=== PATIENT | female | born 1970 | race Caucasian/White ===

== ENCOUNTER 2018-07-30 09:12 | Emergency (ER) | payer OTHER ==
--- OUTSIDE RECORDS SUMMARY | 2018-07-30 09:16 | XMS REPORT | Continuity of Care Document ---
:1970 Author Organization Interface Problems Problem Status Onset Classification Date Comments Source Date Reported ANXIETY-DEPRESSIO Active 06/25/20 [facility] N 18 ABDOMINAL PAIN Active 06/17/20 [place] 18 [place] Chest pain 04/03/20 04/06/2018 [place] 18 [place] Acute lumbar 04/02/20 04/06/2018 [place] radiculopathy 18 [place] Lupus Resolved 10/01/19 Problem 04/06/2018 [facility] 13 Group, [place] AA - Aortic Resolved 10/01/19 Problem 04/06/2018 Medical aneurysm 11 Group, [place] Anxiety Resolved Problem 04/06/2018 Medical Group, [place] Fibromyalgia Resolved Problem 04/06/2018 Medical Group, [place] Fibromyalgia Active Problem 04/06/2018 Medical Group, [place] Migraines Active Problem 04/06/2018 [facility] Group, [place] Mixed anxiety and Active Problem 04/06/2018 Medical depressive Group, disorder [place] Simple obesity Active Problem 04/06/2018 [facility] Group, [place] UTI (<span Resolved Problem 04/06/2018 Medical ID="[id number]" Group,[facility] >Confirmed</span> [place] ) Chest pain Active Problem 04/06/2018 [facility] Group, [place] Acute lumbar Active Problem 04/06/2018 Medical radiculopathy Group, [place] MAJOR DEPRESSIVE Active [facility] DISORDER, SINGLE EPISOD GENERALIZED Active [facility] ANXIETY DISORDER Medications Medication Details Route Status Patient Ordering Order Source Instructions Provider Date Zofran 4 mg, Route: Inactive IVP, Drug 018 [place] form: INJ, [place] ONCE, Dosing Weight 76.563, kg, Priority: STAT, Start date: 04/03/18 0:38:00 CDT, Stop date: 04/03/18 0:38:00 CDT Morphine 2 mg, 1 mL, Inactive Route: IVP, 018 [place] Drug form: [place] INJ, ONCE, Dosing Weight 76.563, kg, Priority: STAT, Start date: 04/02/18 22:07:00 CDT, Stop date: 04/02/18 22:07:00 CDTNotes: (Same as:MORPhine Sulfate) Omnipaque 350 100 mL, Inactive injectable Route: IVP, 018 [place] solution Drug Form: [place] SOLN, Dosing Weight 76.563, kg, ONCALL, GFR > 45 mL/min, STAT, Start date: 04/02/18 22:00:00 CDT, Duration: 1 doses or timesNotes: (same as:Omnipaque 350). WASTE: F/P - Black; E - Municipal Trash Bin Saline Flush 0.9% 10 mL, Route: No Longer IVP, Drug Active 018 [place] Form: INJ, [place] Dosing Weight 76.563, kg, PRN, PRN Line Flush, Start date: 04/02/18 21:16:00 CDT, Duration: 30 day, Stop date: 05/02/18 21:15:00 CDTNotes: (Same as: BD Posiflush) Cyclobenzaprine 10 mg=1 tab, Active hydrochloride 10 PO, TID, PRN 018 [place] MG Oral Tablet for spasm, X Land [Flexeril] 7 day, # 21 tab, 0 Refill(s) tramadol 50 mg=1 tab, Active hydrochloride 50 PO, Q6H, PRN 018 [place] MG Oral Tablet Pain, X 3 [place] day, # 12 tab, 0 Refill(s) Zofran 4 mg, Route: Inactive IVP, Drug 018 [place] form: INJ, [place] ONCE, Dosing Weight 76.563, kg, Priority: STAT, Start date: 04/02/18 19:08:00 CDT, Stop date: 04/02/18 19:08:00 CDT Morphine 4 mg, Route: Inactive IVP, ONCE, 018 [place] Dosing Weight [place] 76.563, kg, Priority: STAT, Start date: 04/02/18 19:08:00 CDT, Stop date: 04/02/18 19:08:00 CDT Acetaminophen 325 1 tab, Route: Inactive MG / Hydrocodone PO, Drug 018 [place] Bitartrate 7.5 MG Form: TAB, [place] Oral Tablet Dosing Weight [[place] 7.5/325] 76.563, kg, ONCE, STAT, Start date: 04/02/18 17:58:00 CDT, Stop date: 04/02/18 17:58:00 CDT Clonazepam 0.5 mg, 1 Inactive tab, Route: 018 [place] PO, Drug [place] form: TAB, Daily, Dosing Weight 76.364, kg, Start date: 03/17/18 21:00:00 CDT, Duration: 30 day, Stop date: 04/15/18 21:00:00 CDTNotes: (Same As: KlonoPIN) Ondansetron 4 MG 4 mg=1 tab, Active Disintegrating PO, BID, PRN 018 [place] Tablet [Zofran] Nausea and [place] Vomiting, Dissolve tab under tongue, # 10 tab, 0 Refill(s), Pharmacy: [facility] [id number] ciprofloxacin 500 500 mg=1 tab, Active MH mg oral tablet PO, Q12H, for 018 [place] UTI and [place] enteritis, X 3 day, # 6 tab, 0 Refill(s), Pharmacy: [facility] [id number] tramadol 50 mg=1 tab, Active hydrochloride 50 PO, BID, X 15 018 [place] MG Oral Tablet day, # 30 [place] tab, 0 Refill(s) multivitamin 1 tab, Route: Inactive PO, Drug 018 [place] Form: TAB, [place] Dosing Weight 76.364, kg, Daily, Start date: 03/17/18 9:00:00 CDT, Duration: 30 day, Stop date: 04/15/18 9:00:00 CDTNotes: (Same as:Thera) WASTE: F/P - Black; E - Municipal Trash Bin Take with food. Wellbutrin SR 100 mg, 1 Inactive tab, Route: 018 [place] PO, Drug [place] form: ERTAB, Daily, Dosing Weight 76.364, kg, Start date: 03/17/18 9:00:00 CDT, Duration: 30 day, Stop date: 04/15/18 9:00:00 CDTNotes: Do not crush or chew. (Same As: Wellbutrin SR) topiramate 100 mg, 1 No Longer MH tab, Route: Active 018 [place] PO, Drug [place] form: TAB, BID, Dosing Weight 76.364, kg, Start date: 03/16/18 21:00:00 CDT, Duration: 30 day, Stop date: 04/15/18 9:00:00 CDTNotes: (Same As: Topamax) "Do Not Crush" duloxetine 30 mg, 1 cap, No Longer 2 MH Route: PO, Active 018 [place] Drug form: [place] DRC, BID, Dosing Weight 76.364, kg, Start date: 03/16/18 21:00:00 CDT, Duration: 30 day, Stop date: 04/15/18 9:00:00 CDTNotes: (Same as: Cymbalta) (Do Not Crush) Phenergan 12.5 mg, 0.5 Inactive MH mL, Route: 018 [place] IM, Drug [place] form: INJ, ONCE, Dosing Weight 76.364, kg, Priority: STAT, Start date: 03/16/18 19:26:00 CDT, Stop date: 03/16/18 19:26:00 CDTNotes: Do not give IV push. (Same as: Phenergan) Enoxaparin 40 mg, 0.4 No Longer MH mL, Route: Active 018 [place] SUB-Q, Drug [place] form: INJ, [id number], Dosing Weight 76.364, kg, Start date: 03/16/18 14:00:00 CDT, Stop date: 04/14/18 14:00:00 CDTNotes: (Same as: Lovenox) Ciprofloxacin 400 mg, 200 No Longer MH mL, Route: Active 018 [place] IVPB, Drug [place] form: INJ, [id number], Dosing Weight 76.364, kg, Start date: 03/16/18 14:00:00 CDT, Duration: 7 day, Stop date: 03/23/18 2:00:00 CDT, ABX Indication: Urinary Tract InfectionNote s: Do not refrigerate Ondansetron 4 mg, 2 mL, No Longer Route: IVP, Active 018 [place] Drug form: [place] INJ, Q8H, Dosing Weight 76.364, kg, PRN Nausea & Vomiting, Start date: 03/16/18 13:45:00 CDT, Duration: 30 day, Stop date: 04/15/18 13:44:00 CDTNotes: (Same as: Samira) MEDICATION WASTE Product Size: 4 mg Product Wasted: ___ mg Tessalon Perles 100 mg, 1 No Longer cap, Route: Active 018 [place] PO, Drug [place] form: CAP, Q8H, Dosing Weight 76.364, kg, PRN Cough, Start date: 03/16/18 13:45:00 CDT, Duration: 30 day, Stop date: 04/15/18 13:44:00 CDTNotes: (Same As: Tessalon Perles) "Do Not Crush" Diphenhydramine 25 mg, 1 cap, No Longer Route: PO, Active 018 [place] Drug form: [place] CAP, Q6H, Dosing Weight 76.364, kg, PRN Itching, Start date: 03/16/18 13:45:00 CDT, Duration: 30 day, Stop date: 04/15/18 13:44:00 CDTNotes: (Same as: Benadryl) Simethicone 80 mg, 1 tab, No Longer Route: PO, Active 018 [place] Drug form: [place] CHE[place]AB, Q6H, Dosing Weight 76.364, kg, PRN Gas, Start date: 03/16/18 13:45:00 CDT, Duration: 2 doses or times, Stop date: Limited # of timesNotes: (Same as: Mylicon) Aluminum 30 mL, Route: No Longer MH Hydroxide 40 PO, Drug Active 018 [place] MG/ML / Magnesium Form: SUSP, Land Hydroxide 40 Dosing Weight MG/ML / 76.364, kg, Simethicone 4 Q4H, PRN MG/ML Oral Indigestion, Suspension Start date: 03/16/18 13:45:00 CDT, Duration: 30 day, Stop date: 04/15/18 13:44:00 CDTNotes: (aluminum hydroxide-mag nesium hyd-simethico ne [id number]/ 5ml 30 ml ud [place]) Bisacodyl 10 mg, 1 No Longer supp, Route: Active 018 [place] NE, Drug [place] form: SUPP, Daily, Dosing Weight 76.364, kg, PRN Constipation, Start date: 03/16/18 13:45:00 CDT, Duration: 30 day, Stop date: 04/15/18 13:44:00 CDTNotes: (Same As: Dulcolax, Bisco-Lax) Sumatriptan 50 mg, 2 tab, Inactive Route: PO, 018 [place] Drug form: [place] TAB, ONCE, Dosing Weight 76.364, kg, PRN Headache 6-10, Start date: 03/16/18 13:19:00 CDTNotes: (Same As: Imitrex) Acetaminophen 650 mg, 2 No Longer tab, Route: Active 018 [place] PO, Drug [place] form: TAB, Q4H, Dosing Weight 76.364, kg, PRN Pain 1-3/Temp > 100.4 F, Start date: 03/16/18 13:18:00 CDT, Duration: 30 day, Stop date: 04/15/18 13:17:00 CDTNotes: Do not exceed 4 gm/day. (Same as: Tylenol) Acetaminophen 325 1 tab, Route: No Longer MG / Hydrocodone PO, Drug Active 018 [place] Bitartrate 5 MG Form: TAB, [place] Oral Tablet Dosing Weight 76.364, kg, Q4H, PRN Pain Score 4-6, Start date: 03/16/18 13:18:00 CDT, Duration: 30 day, Stop date: 04/15/18 13:17:00 CDTNotes: (Same as: [place] 325/5) Do not exceed 4gm/day of acetaminophen . Sodium Chloride 1,000 mL, No Longer 0.9% IV 1,000 mL Rate: 125 Active 018 [place] ml/hr, Infuse [place] over: 8 hr, Route: IV, Dosing Weight 76.364 kg, Total Volume: 1,000, Start date: 03/16/18 13:18:00 CDT, Duration: 30 day, Stop date: 04/15/18 13:17:00 CDT, 1.85, m2 Saline Flush 0.9% 10 ml, Route: No Longer IVP, Drug Active 018 [place] Form: INJ, [place] Dosing Weight 76.364, kg, PRN, PRN Line Flush, Start date: 03/16/18 13:18:00 CDT, Duration: 30 day, Stop date: 04/15/18 13:17:00 CDTNotes: (Same as: BD Posiflush) Ondansetron 4 mg, 2 mL, No Longer Route: IVP, Active 018 [place] Drug form: [place] INJ, Q6H, Dosing Weight 76.364, kg, PRN Nausea & Vomiting, Start date: 03/16/18 13:18:00 CDT, Duration: 30 day, Stop date: 04/15/18 13:17:00 CDTNotes: (Same as: Samira) MEDICATION WASTE Product Size: 4 mg Product Wasted: ___ mg 12 HR Bupropion 100 mg=1 tab, Active Hydrochloride 100 PO, Daily, 0 018 [place] MG Extended Refill(s) [place] Release Tablet [Wellbutrin] Vitamin D3 2,000 Active IntlUnit, PO, 018 [place] Daily, 0 [place] Refill(s) multivitamin 1 tablet, PO, Active Daily, 0 018 [place] Refill(s) [place] ketOROLAC 15 15 mg, Route: Inactive MH mg/mL injectable IVP, Drug 018 [place] solution form: INJ, [place] ONCE, Dosing Weight 76.864, kg, Priority: STAT, Start date: 03/16/18 10:54:00 CDT, Stop date: 03/16/18 10:54:00 CDT Omnipaque 300 85 mL, Route: Inactive injectable IVP, Drug 018 [place] solution Form: SOLN, [place] Dosing Weight 76.864, kg, ONCALL, GFR > 45 mL/min, STAT, Start date: 03/16/18 10:50:00 CDT, Duration: 1 doses or timesNotes: (Same as:Omnipaque 300). WASTE: F/P - Black; E - Municipal Trash Bin Ondansetron 4 mg, 2 mL, Inactive Route: IVP, 018 [place] Drug form: [place] INJ, ONCE, Dosing Weight 76.864, kg, Priority: STAT, Start date: 03/16/18 9:15:00 CDT, Stop date: 03/16/18 9:15:00 CDTNotes: (Same as: Samira) MEDICATION WASTE Product Size: 4 mg Product Wasted: ___ mg Morphine 4 mg, 1 mL, Inactive Route: IVP, 018 [place] Drug form: [place] SOLN, ONCE, Dosing Weight 76.864, kg, Priority: STAT, Start date: 03/16/18 9:15:00 CDT, Stop date: 03/16/18 9:15:00 CDTNotes: (Same as:MORPhine Sulfate) Sodium Chloride 1,000 mL, Inactive 0.9% (Bolus) IV 1000 ml/hr, 018 [place] Infuse Over: [place] 1 hr, Route: IV, 1,000, Drug form: INJ, ONCE, Priority: STAT, Dosing Weight 76.864 kg, Start date: 03/16/18 9:15:00 CDT, Stop date: 03/16/18 9:15:00 CDT Saline Flush 0.9% 10 mL, Route: No Longer IVP, Drug Active 018 [place] Form: INJ, [place] Dosing Weight 76.864, kg, PRN, PRN Line Flush, Start date: 03/16/18 9:15:00 CDT, Duration: 30 day, Stop date: 04/15/18 9:14:00 CDTNotes: (Same as: BD Posiflush) Ceftriaxone 2 gm, Route: Inactive IVPB, Drug 018 [place] form: [place] PDR/INJ, ONCE, Dosing Weight 76.864, kg, Priority: STAT, Start date: 03/16/18 9:15:00 CDT, Stop date: 03/16/18 9:15:00 CDT, ABX Indication: Urinary Tract Infection Allergies, Adverse Reactions, Alerts Substance Category Reaction Severity Reaction Status Date Comments Source type Reported codeine Assertion Drug Active allergy Medical Group Levaquin Assertion Drug Active allergy Medical Group metroNIDAZOLE Assertion Drug Active allergy Medical Group Immunizations Immunization Date Given Site Status Last Comments Source Updated measles/mumps/rub 07/11/2017 Left Arm completed [facility] sobia virus Group,[facility] vaccine [place] pneumococcal 07/24/2014 Left completed [facility] 23-valent vaccine Deltoid Group, [place] influenza virus 07/24/2014 Right completed [facility] vaccine, Deltoid Group, inactivated [place] Results Order Name Results Value Reference Date Interpretation Comments Source Range ED ED HISTORY: - abdominal pain 06/17 - Abdomen/Pel Abdomen/Pel /2017 - [place] vis IV s IV contrast [place] contrast only CT only CT TECHNIQUE: Contiguous axial CT images of the abdomen and pelvis were obtained after the uneventful administration of intravenous contrast. Additionally, both coronal and sagittal reformats were also submitted for interpretation. Read by: Corey Alan MD Dictated Date/time: 06/17/18 17:36 Electronically Signed by: Corey Alan MD 06/17/18 17:41 FINAL REPORT DOSE: Total DLP 911 mGy/cm 85 mL of Omnipaque 300 This exam was performed according to the departmental dose-optimization program which includes automated exposure control, adjustment of the mA and/or kV according to patient size, and/or use of iterative reconstruction technique. COMPARISON: Study dated 10/16/2017. FINDINGS: The lung bases are clear. The inferior aspect of the heart is grossly unremarkable. There is no pleural or pericardial effusion. Patient has undergone prior cholecystectomy. Focal fatty infiltration of the liver is seen along the falciform ligament. The spleen, pancreas, kidneys, and adrenals are normal. There is no pathologic by size criteria retroperitoneal or mesenteric lymphadenopathy. The unopacified bowel is grossly unremarkable. In particular, the appendix is normal. Patient has undergone prior hysterectomy. The bladder is within normal limits. Stable appearance of left ovarian cyst which measures up to approximately 2.8 cm in greatest dimension. There is no abnorma l right adnexal mass. Several pelvic phleboliths are present. Minimal osseous degenerative changes are present. There is no suspicious lytic or blastic lesion. IMPRESSION: 1. No evidence of acute abdominopelvic pathology. 2. Stable appearance of left ovarian cyst. No follow-up is necessary. Note: Recommendations for f/u of anechoic simple cyst* Pre-menopause: < 5 cm No f/u necessary >5cm - <7cm US f/u yearly >7cm Consider MR w/IVC or surgical evaluation Post-menopause (1 year or more since last menstrual period): <3 cm No f/u necessary >3cm - <7 cm US f/u yearly >7cm Consider MR w/IVC or surgical evaluation Reference: 2010 SRU Consensus Conference Statement on the Management of asymptomatic ovarian and adnexal cysts imaged at US. Radiology. 2009;256(3): 943-54. (*Also includes simple cyst with single thin <3mm septation or focal calcification in wall of cyst) [id number] Chest 1view Chest 1view CLINICAL HISTORY: - Undifferentiated Sepsis - DX - [place] AGE: 48 years [place] GENDER: Female Read by: Sanjiv Pacheco MD Dictated Date/time: 06/17/18 15:29 Electronically Signed by: Sanjiv Pacheco MD 06/17/18 15:30 FINAL REPORT TECHNIQUE: Single AP, portable chest radiograph, 1 view. COMPARISON: 04/02/2018 FINDINGS: The cardiomediastinal silhouette demonstrates normal heart size. No focal airspace or interstitial opacities are seen. No pleural effusions. No pneumothorax. No significant osseous abnormalities are identified. IMPRESSION: No acute cardiopulmonary disease. CARDIAC Troponin-I null 0.00 - 04/03 ENZYMES 0.40 /2017 [place] CARDIAC Troponin-I null 0.00 - 04/03 ENZYMES 0.40 /2017 [place] CARDIAC CK MB 1.0 ng/mL 0.5 - 3.6 04/03 ENZYMES [place] CARDIAC Total CK 58 unit/L 12 - 191 04/03 ENZYMES [place] CARDIAC CK MB Index 1.7 0.0 - 2.5 04/03 ENZYMES [place] CHEM PANEL eGFR 76 04/03 Result Comment: The eGFR is calculated using the CKD-EPI formula. In most young, healthy individuals the eGFR will be >90 mL/ min/1.73m2. The eGFR declines with age. An eGFR of 60-89 may be normal in [facility] mL/min/1.73 /2018 some populations, particularly the elderly, for whom the CKD-EPI formula has not been extensively validated. Use of the eGFR is not recommended in the following populations: [place] m2 [place] Individuals with unstable creatinine concentrations, including patients and those with serious co-morbid conditions. Patients with extremes in muscle mass or diet. The data above are obtained from the National Kidney Disease Education Program (NKDEP) which additionally recommends that when the eGFR is used in patients with extremes of body mass index for purposes of drug dosing, the eGFR should be multiplied by the estimated BMI. CHEM PANEL Calcium Lvl 8.8 mg/dL 8.5 - 10.5 04/03 [place] CHEM PANEL Potassium Lvl 4.6 meq/L 3.5 - 5.1 04/03 [place] CHEM PANEL Sodium Lvl 141 meq/L 135 - 145 04/03 [place] CHEM PANEL ALT 24 unit/L 0 - 65 04/03 [place] CHEM PANEL B/C Ratio 11 6 - 25 04/03 [place] CHEM PANEL Alk Phos 89 unit/L 39 - 136 04/03 [place] CHEM PANEL Albumin Lvl 3.6 g/dL 3.5 - 5.0 04/03 [place] CHEM PANEL Total Protein 7.1 g/dL 6.4 - 8.4 04/03 [place] CHEM PANEL Chloride Lvl 110 meq/L 95 - 109 04/03 [place] CHEM PANEL AST 18 unit/L 0 - 37 04/03 [place] CHEM PANEL CO2 26 meq/L 24 - 32 04/03 [place] CHEM PANEL Globulin 3.5 g/dL 2.7 - 4.2 04/03 [place] CHEM PANEL A/G Ratio 1.0 0.7 - 1.6 04/03 [place] CHEM PANEL AGAP 9.6 meq/L 10.0 - 07/ MH 20.0 [place] CHEM PANEL Bili Total 0.3 mg/dL 0.2 - 1.3 04/03 [place] CHEM PANEL Creatinine 0.90 mg/dL 0.50 - 07 MH Lvl 1.40 [place] CHEM PANEL Glucose Lvl 97 mg/dL 70 - 99 07/ [place] CHEM PANEL BUN 10 mg/dL 7 - 22 / [place] HEMATOLOGY MPV 8.6 fL 7.4 - 10.4 04/03 [place] HEMATOLOGY Platelet 348 K/CMM 133 - 450 04/03 [place] HEMATOLOGY RDW 13.4 % 11.5 - 07 MH 14.5 [place] HEMATOLOGY Hct 40.6 % 36.0 - 04/03 MH 48.0 [place] HEMATOLOGY Hgb 13.3 g/dL 12.0 - 04/03 MH 16.0 [place] HEMATOLOGY MCHC 32.8 g/dL 32.0 - 04/03 MH 36.0 [place] HEMATOLOGY MCH 30.4 pg 27.0 - 04/03 MH 31.0 [place] HEMATOLOGY MCV 92.7 fL 80.0 - 04/03 MH 98.0 [place] HEMATOLOGY RBC 4.38 M/CMM 4.20 - 07/ MH 5.40 [place] HEMATOLOGY WBC 8.5 K/CMM 3.7 - 10.4 04/03 [place] HEMATOLOGY Eosinophils # 0.3 K/CMM 0.0 - 0.5 04/03 [place] HEMATOLOGY Segs-Bands # 4.6 K/CMM 1.5 - 8.1 04/03 [place] HEMATOLOGY Lymphocytes # 3.0 K/CMM 1.0 - 5.5 04/03 [place] HEMATOLOGY Monocytes # 0.6 K/CMM 0.0 - 0.8 04/03 [place] HEMATOLOGY Basophils # 0.1 K/CMM 0.0 - 0.2 04/03 [place] HEMATOLOGY Basophils 0.7 % 0.0 - 1.0 04/03 [place] HEMATOLOGY Eosinophils 3.0 % 0.0 - 4.0 04/03 [place] HEMATOLOGY Monocytes 6.9 % 2.0 - 12.0 04/03 [place] HEMATOLOGY Lymphocytes 35.4 % 20.0 - 07/ MH 40.0 [place] HEMATOLOGY Segs 54.0 % 45.0 - 07/ MH 75.0 [place] URINE AND UA <=1.0 mg/dL 0.1 - 1.0 04/02 STOOL Urobilinogen /2017 [place] URINE AND UA Color Light Yellow Yellow 04/02 STOOL [place] *NA* [place] (04/02/18 6:32 PM) URINE AND UA Turbidity Slight Clear 04/02 [place] *ABN* [place] (04/02/18 6:32 PM) URINE AND UA Bili Negative Negative 04/02 STOOL [place] *NA* [place] (04/02/18 6:32 PM) URINE AND UA Glucose Negative Negative 04/02 STOOL mg/dL mg/dL [place] URINE AND UA WBC 3 /HPF 0 - 5 04/02 STOOL [place] URINE AND UA Sq Epi Occasional Few /LPF 04/02 STOOL /LPF [place] URINE AND UA Protein Negative Negative 04/02 STOOL mg/dL mg/dL [place] URINE AND UA Blood Negative Negative 04/02 STOOL [place] (04/02/18 6:32 PM) [place] URINE AND UA pH 7.0 5.0 - 8.0 04/02 STOOL [place] URINE AND UA Spec Grav 1.005 <=1.030 04/02 [place] URINE AND UA Ketones Negative Negative 04/02 STOOL mg/dL mg/dL [place] URINE AND UA Leuk Est Negative Negative 04/02 STOOL [place] (04/02/18 6:32 PM) [place] URINE AND UA Bacteria Many /HPF None Seen 04/02 STOOL /HPF /2017 [place] URINE AND UA RBC 1 /HPF 0 - 2 04/02 STOOL [place] URINE AND UA Nitrite Negative Negative 04/02 STOOL [place] (04/02/18 6:32 PM) [place] URINE AND UA Mucus Few /LPF None Seen 04/02 STOOL /LPF [place] URINE CHEM U Preg Negative Negative 04/02 [place] (04/02/18 6:32 PM) [facility] Chest CTA Chest CTA Indication: Chest pain history of aortic aneurysm - - [place] COMPARISON: Chest radiograph same day Read by: Cm Herman MD Dictated Date/time: 04/02/18 22:47 Electronically Signed by: Cm Herman MD 04/02/18 22:52 FINAL REPORT Contrast: Omnipaque 300 100cc Radiation dose: DLP 429 mGy/cm TECHNIQUE: Helical acquisition of the chest was obtained from the lung apices to the diaphragm. Axial, sagittal and coronal images MPR were interpreted. This exam was performed according to our [facility] ent dose optimization protocol, which includes automated exposure control, adjustment of the mA and/or kV according to patient size and/or use of iterative reconstruction technique. FINDINGS: HEART: Heart is normal in size and appearance. There is a minor pericardial effusion. LUNGS: There are no suspicious masses or active inflammatory processes. There is a minor density along the minor fissure which measures 4 mm and shows prominent venous drainage to the right middle lobe pulmonary vein. This is likely a small vascular malformation. Mediastinal vessels: Ascending aorta shows minor aneurysmal change measuring 3.9 cm. There is no evidence for aortic dissection. Airway: Unremarkable Esophagus: Unremarkable Adenopathy: None Upper abdominal organs: No acute findings Bone structures: No acute findings IMPRESSION: 1. Minor aneurysmal ascending aorta measuring 3.9 cm. There is no evidence for aortic dissection. 2. Minor pericardial effusion. Chest 1view Chest 1view Frontal chest radiograph 04/02 DX DX /2017 - [place] INDICATION: Chest pain Read by: Cm Herman MD Dictated Date/time: 04/02/18 22:15 Electronically Signed by: Cm Herman MD 04/02/18 22:24 FINAL REPORT COMPARISON: none FINDINGS: Heart/mediastinum: normal size no masses LUNGS: no infiltrates or effusion Support lines/tubes: none Bone structures: no acute changes Upper Abdomen: unremarkable Impression: No acute changes. Spine Spine lumbar EXAMINATION: Lumbar spine CT with multiplanar reconstructions 04/02 lumbar wo wo contrast /2017 - [place] contrast CT CT [place] HISTORY: Back pain radiating to the right lower extremity with numbness; Read by: Jimi Brown MD Dictated Date/time: 04/02/18 19:29 Electronically Signed by: Jimi Brown MD 04/02/18 19:37 FINAL REPORT TECHNIQUE: Lumbar spine CT was performed in the axial plane without contrast. Sagittal and coronal reconstructions were performed by the technologist and sent to the workstation for review. Total DLP is 1000 mGy-cm. This exam was performed according to our departmental dose- optimization program which includes automated exposure control, adjustment of the mA and/or kV according to patient size and/or use of iterative reconstruction technique. Comparison: CT of the abdomen and pelvis dated 03/16/2018. FINDINGS: Lumbar count was verified using available axial and reformatted images. There is no acute fracture. The lumbar spine is in the normal anatomic alignment. Vertebral bodies are of normal height without ly tic or sclerotic lesions or compression fractures. Intervertebral discs show no loss of height on the sagittal images at all levels. There is a simple left adnexal cyst measuring up to 2.1 cm in diameter ( series 2, image 78). Limited views of the soft tissues of the abdomen and pelvis are normal. T12-L1: The disc is normal. There is no facet arthropathy. There is no neural foraminal narrowing. There is no central canal stenosis. L1-L2: The disc is normal. There is no facet arthropathy. There is no neural foraminal narrowing. There is no central canal stenosis. L2-L3: There is mild diffuse disc bulge. There is no facet arthropathy. There is no neural foraminal narrowing. There is mild central canal stenosis. L3-L4: There is moderate diffuse disc bulge. There is no facet arthropathy. There is mild bilateral neural foraminal narrowing. There is mild to moderate central canal stenosis. L4-L5: There is mild diffuse disc bulge. There is no facet arthropathy. There is mild bilateral neural foraminal narrowing. There is mild to moderate central canal stenosis. L5-S1: The disc is normal. There is no facet arthropathy. There is no neural foraminal narrowing. There is no central canal stenosis. IMPRESSION: 1. Mild degenerative changes of the lumbar spine as described in detail above, most severe at L3-L4 and L4-L5. 2. Simple left adnexal cyst measuring up to 2.1 cm in diameter which is almost certainly benign and does not require follow-up according to consensus guidelines. CHEM PANEL Phosphorus 2.8 mg/dL 2.5 - 4.5 03/17 [place] CHEM PANEL Magnesium Lvl 2.2 mg/dL 1.8 - 2.4 03/17 [place] CHEM PANEL eGFR 93 03/17 Result Comment: The eGFR is calculated using the CKD-EPI formula. In most young, healthy individuals the eGFR will be >90 mL/ min/1.73m2. The eGFR declines with age. An eGFR of 60-89 may be normal in [facility] mL/min/1.73 /2017 some populations, particularly the elderly, for whom the CKD-EPI formula has not been extensively validated. Use of the eGFR is not recommended in the following populations: [place] Individuals with unstable creatinine concentrations, including patients and those with serious co-morbid conditions. Patients with extremes in muscle mass or diet. The data above are obtained from the National Kidney Disease Education Program (NKDEP) which additionally recommends that when the eGFR is used in patients with extremes of body mass index for purposes of drug dosing, the eGFR should be multiplied by the estimated BMI. CHEM PANEL Chloride Lvl 112 meq/L 95 - 109 03/17 [place] CHEM PANEL Bili Total 0.2 mg/dL 0.2 - 1.3 03/17 [place] CHEM PANEL Alk Phos 74 unit/L 39 - 136 03/17 [place] CHEM PANEL Creatinine 0.76 mg/dL 0.50 - 03/17 [facility] Lvl 1.40 /2017 [place] CHEM PANEL Glucose Lvl 89 mg/dL 70 - 99 03/17 [place] CHEM PANEL Sodium Lvl 142 meq/L 135 - 145 03/17 [place] CHEM PANEL Potassium Lvl 3.7 meq/L 3.5 - 5.1 03/17 [place] CHEM PANEL BUN 4 mg/dL 7 - 22 03/17 [place] CHEM PANEL CO2 26 meq/L 24 - 32 03/17 [place] CHEM PANEL Albumin Lvl 3.0 g/dL 3.5 - 5.0 03/17 [place] CHEM PANEL Total Protein 5.9 g/dL 6.4 - 8.4 03/17 [place] CHEM PANEL Calcium Lvl 8.1 mg/dL 8.5 - 10.5 03/17 [place] CHEM PANEL ALT 27 unit/L 0 - 65 03/17 [place] CHEM PANEL AST 19 unit/L 0 - 37 03/17 [place] CHEM PANEL AGAP 7.7 meq/L 10.0 - 03/17 [facility] 20.0 [place] CHEM PANEL B/C Ratio 5 6 - 25 03/17 [place] CHEM PANEL A/G Ratio 1.0 0.7 - 1.6 03/17 [place] CHEM PANEL Globulin 2.9 g/dL 2.7 - 4.2 03/17 [facility] HEMATOLOGY Tot Cell Ct 100 03/17 [facility] HEMATOLOGY Plt Morph Normal 03/17 [place] (03/17/18 5:53 AM) [place] HEMATOLOGY RBC Morph Normal 03/17 [place] (03/17/18 5:53 AM) [place] HEMATOLOGY Lymphocytes # 3.0 K/CMM 1.0 - 5.5 03/17 [place] HEMATOLOGY Monocytes # 0.3 K/CMM 0.0 - 0.8 03/17 [place] HEMATOLOGY Segs 50.0 % 45.0 - 03/17 [facility] 75.0 [place] HEMATOLOGY Eosinophils # 0.3 K/CMM 0.0 - 0.5 03/17 [place] HEMATOLOGY Lymphocytes 42.0 % 20.0 - 03/17 MH 40.0 [place] HEMATOLOGY Bands 0.0 % 0.0 - 11.0 03/17 [place] HEMATOLOGY Monocytes 4.0 % 2.0 - 12.0 03/17 [place] HEMATOLOGY Atypical 0.0 % <=0.0 % 03/17 Lymphs [place] HEMATOLOGY Eosinophils 4.0 % 0.0 - 4.0 03/17 [place] HEMATOLOGY Segs-Bands # 3.6 K/CMM 1.5 - 8.1 03/17 [place] HEMATOLOGY INR 0.92 0.85 - 03/17 MH 1. [place] HEMATOLOGY PTT 35.9 s 22.9 - 03/17 MH 35.8 [place] HEMATOLOGY PT 12.4 s 12.0 - 03/17 MH 14.7 [place] HEMATOLOGY WBC 7.1 K/CMM 3.7 - 10.4 03/17 [place] HEMATOLOGY RDW 13.3 % 11.5 - 03/17 MH 14.5 [place] HEMATOLOGY MCHC 32.7 g/dL 32.0 - 03/17 MH 36.0 [place] HEMATOLOGY MPV 8.9 fL 7.4 - 10.4 03/17 [place] HEMATOLOGY RBC 3.99 M/CMM 4.20 - 06/17 MH 5.40 [place] HEMATOLOGY MCH 30.4 pg 27.0 - 03/17 MH 31.0 [place] HEMATOLOGY MCV 92.9 fL 80.0 - 03/17 [facility] 98.0 [place] HEMATOLOGY Platelet 296 K/CMM 133 - 450 03/17 [place] HEMATOLOGY Hct 37.1 % 36.0 - 03/17 MH 48.0 [place] HEMATOLOGY Hgb 12.1 g/dL 12.0 - 03/17 MH 16.0 [place] CHEM PANEL Lipase Lvl 192 unit/L 73 - 393 03/16 [facility] CHEM PANEL eGFR 74 03/16 Result Comment: The eGFR is calculated using the CKD-EPI formula. In most young, healthy individuals the eGFR will be >90 mL/ min/1.73m2. The eGFR declines with age. An eGFR of 60-89 may be normal in mL/min/1.73 /2017 some populations, particularly the elderly, for whom the CKD-EPI formula has not been extensively validated. Use of the eGFR is not recommended in the following populations: [place] Individuals with unstable creatinine concentrations, including patients and those with serious co-morbid conditions. Patients with extremes in muscle mass or diet. The data above are obtained from the National Kidney Disease Education Program (NKDEP) which additionally recommends that when the eGFR is used in patients with extremes of body mass index for purposes of drug dosing, the eGFR should be multiplied by the estimated BMI. CHEM PANEL BUN 10 mg/dL 7 - 22 03/16 [facility] CHEM PANEL Sodium Lvl 138 meq/L 135 - 145 03/16 [facility] CHEM PANEL Glucose Lvl 87 mg/dL 70 - 99 03/16 [facility] CHEM PANEL Creatinine 0.92 mg/dL 0.50 - 03/16 [facility] Lvl 1.40 [place] CHEM PANEL Chloride Lvl 108 meq/L 95 - 109 03/16 [place] CHEM PANEL Calcium Lvl 8.6 mg/dL 8.5 - 10.5 03/16 [place] CHEM PANEL Potassium Lvl 3.9 meq/L 3.5 - 5.1 03/16 [place] CHEM PANEL CO2 23 meq/L 24 - 32 03/16 [place] CHEM PANEL Total Protein 7.3 g/dL 6.4 - 8.4 03/16 [place] CHEM PANEL ALT 29 unit/L 0 - 65 03/16 [place] CHEM PANEL Alk Phos 101 unit/L 39 - 136 03/16 [place] CHEM PANEL Albumin Lvl 3.7 g/dL 3.5 - 5.0 03/16 [place] CHEM PANEL AST 21 unit/L 0 - 37 03/16 [place] CHEM PANEL Bili Total 0.2 mg/dL 0.2 - 1.3 03/16 [place] CHEM PANEL B/C Ratio 11 6 - 25 03/16 [place] CHEM PANEL A/G Ratio 1.0 0.7 - 1.6 03/16 [place] CHEM PANEL Globulin 3.6 g/dL 2.7 - 4.2 03/16 [place] CHEM PANEL AGAP 10.9 meq/L 10.0 - 03/16 MH 20.0 [place] CHEM PANEL Lactic Acid 1.0 mMol/L 0.5 - 2.2 03/16 [facility] Lvl /2017 [place] HEMATOLOGY Hgb 14.0 g/dL 12.0 - 03/16 MH 16.0 [place] HEMATOLOGY Hct 43.1 % 36.0 - 03/16 MH 48.0 [place] HEMATOLOGY RBC 4.69 M/CMM 4.20 - 03/16 MH 5.40 /2017 [place] HEMATOLOGY MPV 9.3 fL 7.4 - 10.4 03/16 [facility] HEMATOLOGY Platelet 353 K/CMM 133 - 450 03/16 [facility] HEMATOLOGY RDW 13.6 % 11.5 - 03/16 MH 14.5 [place] HEMATOLOGY MCV 92.0 fL 80.0 - 03/16 MH 98.0 [place] HEMATOLOGY MCHC 32.5 g/dL 32.0 - 03/16 MH 36.0 [place] HEMATOLOGY MCH 29.9 pg 27.0 - 03/16 MH 31.0 [place] HEMATOLOGY WBC 12.5 K/CMM 3.7 - 10.4 03/16 [facility] HEMATOLOGY Eosinophils # 0.3 K/CMM 0.0 - 0.5 03/16 [facility] HEMATOLOGY Monocytes # 0.6 K/CMM 0.0 - 0.8 03/16 [facility] HEMATOLOGY Basophils # 0.1 K/CMM 0.0 - 0.2 03/16 [facility] HEMATOLOGY Lymphocytes # 2.1 K/CMM 1.0 - 5.5 03/16 [facility] HEMATOLOGY Segs-Bands # 9.4 K/CMM 1.5 - 8.1 03/16 [facility] HEMATOLOGY Monocytes 5.1 % 2.0 - 12.0 03/16 [facility] HEMATOLOGY Basophils 0.5 % 0.0 - 1.0 03/16 [facility] HEMATOLOGY Eosinophils 2.1 % 0.0 - 4.0 03/16 [facility] HEMATOLOGY Plt Morph Normal 03/16 [place] (03/16/18 9:49 AM) [place] HEMATOLOGY RBC Morph Normal 03/16 [place] (03/16/18 9:49 AM) [place] HEMATOLOGY Lymphocytes 16.9 % 20.0 - 03/16 40.0 [facility] HEMATOLOGY Segs 75.4 % 45.0 - 03/16 75.0 [place] URINE AND UA Amorph Moderate None Seen 03/16 STOOL Petra /HPF /HPF /2017 [place] URINE AND UA Mucus Few /LPF None Seen 03/16 STOOL /LPF [place] URINE AND UA Bacteria Many /HPF None Seen 03/16 STOOL /HPF /2017 [place] URINE AND UA RBC 2 /HPF 0 - 2 03/16 STOOL [place] URINE AND UA WBC 63 /HPF 0 - 5 03/16 STOOL [place] URINE AND UA Sq Epi Occasional Few /LPF 03/16 STOOL /LPF /2017 [place] URINE AND UA Leuk Est Negative Negative 03/16 STOOL /2017 [place] (03/16/18 9:49 AM) [place] URINE AND UA Protein 100 mg/dL Negative 03/16 STO[facility] mg/dL [place] URINE AND UA Glucose Negative Negative 03/16 STO[facility] mg/dL mg/dL /2017 [place] URINE AND UA Bili Negative Negative 03/16 STOOL [place] *NA* [place] (03/16/18 9:49 AM) URINE AND UA 4.0 mg/dL 0.1 - 1.0 03/16 [facility] Urobilinogen /2017 [place] URINE AND UA Ketones Negative Negative 03/16 [facility] mg/dL mg/dL [place] URINE AND UA Blood Small Negative 03/16 [place] *ABN* [place] (03/16/18 9:49 AM) URINE AND UA Nitrite Positive Negative 03/16 [place] *ABN* [place] (03/16/18 9:49 AM) URINE AND UA Color Red Yellow 03/16 [place] *ABN* [place] (03/16/18 9:49 AM) URINE AND UA Turbidity Slight Clear 03/16 [place] *ABN* [place] (03/16/18 9:49 AM) URINE AND UA Spec Grav 1.010 <=1.030 03/16 [facility] URINE AND UA pH 5.0 5.0 - 8.0 03/16 [facility] ED ED 03/16 - Abdomen/Pel Abdomen/Pelvi - [place] vis IV s IV contrast [place] contrast only CT only CT Sex: Female. Read by: Mat Anderson MD Dictated Date/time: 03/16/18 11:22 : 1970. Electronically Signed by: Mat Anderson MD 03/16/18 11:25 FINAL REPORT Technique: Axial scans through the abdomen and pelvis following intravenous injection of 100 cc of Omnipaque including multiplanar computer reformations. Total Dose Length Product: 10/02/2003. This exam was performed according to our departmental dose optimization program which includes automated exposure control, adjustment of the mA and/or kV according to patient size and/or use of iterative reconstruction technique. Comparison studies: None. Clinical history: - R abd pain. Findings: Liver: Size: 16 cm. Parenchyma: Fatty infiltration. Vasculature: Portal and hepatic veins: Normal. Spleen: Normal. Gallbladder: Cholecystectomy. Bile ducts: No biliary dilatation. Pancreas: normal. Adrenal glands: Normal. Kidneys: Normal. Bladder: Normal. Prostate: Normal. Intestinal tract: Stomach and duodenum: Normal. Small bowel: There are fluid-filled small bowel loops noted more than 23 mm. Large bowel: Collapsed segment of sigmoid simulates prominent folds. No evidence for large intestinal dilatation or obstruction. Appendix: Normal. Mesentery and Omentum: Normal. Vasculature: Aorta: Normal. Iliac arteries: Normal. Retroperitoneum: No mass or adenopathy. Free fluid: None. Musculoskeletal: Musculature, abdominal wall and soft tissues: Normal Skeletal structures: Unremarkable. Lung bases: Clear. Impression: 1. Correlate for any evidence for small bowel ileus or enteritis. No evidence for bowel obstruction. 2. Fatty liver. 3. Cholecystectomy. 4. Normal appendix. Vital Signs Vital Sign Value Date Comments Source Respitory Rate 16 04/03/2018 [facility] Temperature Oral (F) 98 F 04/03/2018 [facility] [place] Systolic (mm Hg) 98 04/03/2018 [facility] [place] Diastolic (mm Hg) 68 04/03/2018 [facility] [place] Systolic (mm Hg) 109 04/03/2018 [facility] [place] Diastolic (mm Hg) 79 04/03/2018 [facility] [place] Respitory Rate 14 04/03/2018 [facility] [place] Systolic (mm Hg) 107 04/03/2018 [facility] [place] Diastolic (mm Hg) 71 04/03/2018 [facility] [place] Respitory Rate 15 04/03/2018 [facility] [place] Heart Rate 78 04/03/2018 [facility] [place] Temperature Oral (F) 97.7 F 04/03/2018 [facility] [place] Heart Rate 78 04/03/2018 [facility] [place] Weight 76.563 04/02/2018 [facility] [place] Temperature Oral (F) 99.4 F 04/02/2018 [facility] [place] Heart Rate 104 04/02/2018 [facility] [place] Systolic (mm Hg) 102 03/17/2018 [facility] [place] Diastolic (mm Hg) 65 03/17/2018 [facility] [place] Temperature Oral (F) 98.3 F 03/17/2018 [facility] [place] Heart Rate 64 03/17/2018 [facility] [place] Respitory Rate 18 03/17/2018 [facility] [place] Temperature Oral (F) 98.2 F 03/17/2018 [facility] [place] Heart Rate 67 03/17/2018 [facility] [place] Respitory Rate 18 03/17/2018 [facility] [place] Systolic (mm Hg) 100 03/17/2018 [facility] [place] Diastolic (mm Hg) 64 03/17/2018 [facility] [place] Systolic (mm Hg) 100 03/17/2018 [facility] [place] Diastolic (mm Hg) 69 03/17/2018 [facility] [place] Heart Rate 68 03/17/2018 [facility] [place] Temperature Oral (F) 97.6 F 03/17/2018 [facility] [place] Respitory Rate 18 03/17/2018 [facility] [place] Weight 76.364 03/16/2018 [facility] [place] Height 157.48 cm 03/16/2018 [facility] [place] BMI Calculated 30.79 03/16/2018 [place] Weight 76.864 03/16/2018 [facility] Height 157.48 cm 03/16/2018 [facility] BMI Calculated 30.99 03/16/2018 [facility] Encounters Location Location Encounter Encounter Reason Attending ADM DC Status Source Details Type Number For Provider Date Date Visit Outpatient [id number] ANALISA ANTONIA 03/20 [facility] [id number] ANALISA ANTONIA 07/11 [facility] [id number] ANALISA ANTONIA 08/06 [facility] Phone [id number] 11/20 11/22 Primary [facility] Observation [id number] Jesu [place] 03/16 03/17 [facility] [place] [id number] ANALISA ANTONIA 04/02 Active [facility] Ambulatory [id number] Analisa Antonia 04/02 04/02 Primary [facility] Emergency [id number] Ke Watts 04/02 04/03 [place] [facility] Phone [id number] 04/02 04/04 Primary Message [facility] [place] [facility] [id number] MONY 06/17 [facility] [id number] ANALISA ANTONIA 07/02 [facility] Procedures Procedure Code Date Perfomer Comments Source Partial hysterectomy [id number] 10/01/2005 [facility] Partial hysterectomy [id number] 10/01/2005 [place] Bilateral inguinal [id number] [facility] Cholecystectomy [id number] [facility] Hernia repair [id number] [facility] Hysterectomy [id number] [facility] Bilateral inguinal [id number] [place] [facility] [place] Cholecystectomy [id number] [facility] Hernia repair [id number] [facility] [place] Hysterectomy [id number] [place]
--- OUTSIDE RECORDS SUMMARY | 2018-07-30 09:17 | XMS REPORT | Summary of Care ---
:1970 Author Organization [facility] Address [address] [place], [place] [address]- Encounter HQ Encntr_alias(FIN) [id number] Date(s): 04/02/18 - 04/03/18 [facility] [place] [facility] [address] [place] [address]- Encounter Diagnosis Chest pain (Discharge Diagnosis) - 04/03/18 Acute lumbar radiculopathy (Discharge Diagnosis) - 04/02/18 Discharge Disposition: Home or Self Care Attending Physician: Praveen Watts MD Vital Signs Most recent to oldest [Reference 1 2 3 Range]: Temperature Oral [96.4-99.1 98 DegF 97.7 DegF 99.4 DegF DegF] (04/03/18 12:44 AM) (04/02/18 9:00 PM) *HI* (04/02/18 5:11 PM) Blood Pressure [90-140/60-90 98/68 mmHg 109/79 mmHg 107/71 mmHg mmHg] (04/03/18 12:44 AM) (04/02/18 10:05 PM) (04/02/18 9:10 PM) Respiratory Rate [14-20 BRMIN] 16 BRMIN 14 BRMIN 15 BRMIN (04/03/18 12:44 AM) (04/02/18 10:05 PM) (04/02/18 9:10 PM) Peripheral Pulse Rate [60-100 78 bpm 78 bpm 104 bpm bpm] (04/02/18 9:00 PM) (04/02/18 8:10 PM) *HI* (04/02/18 5:11 PM) Weight 76.563 kg (04/02/18 5:11 PM) Problem List Condition Effective Dates Status Health Status Informant AA - Aortic aneurysm(Confirmed) 2010 Resolved Anxiety(Confirmed) Resolved Chest pain(Confirmed) Active Fibromyalgia(Confirmed) Resolved Fibromyalgia(Confirmed) Active Acute lumbar Active radiculopathy(Confirmed) Lupus(Confirmed) 2012 Resolved Migraines(Confirmed) Active Mixed anxiety and depressive Active disorder(Confirmed) Simple obesity(Confirmed) Active UTI (urinary tract Resolved infection)(Confirmed) Allergies, Adverse Reactions, Alerts Substance Reaction Severity Status codeine Active Levaquin Active metroNIDAZOLE Active Medications Flexeril 10 mg oral tablet 10 mg=1 tab, PO, TID, PRN for spasm, X 7 day, # 21 tab, 0 Refill(s) Start Date: 04/02/18 Stop Date: 04/09/18 Status: Orderedmorphine Sulfate 4 mg, Route: IVP, ONCE, Dosing Weight 76.563, kg, Priority: STAT, Start date: 19:08:00 CDT,Stop date: 04/02/18 19:08:00 CDT Start Date: 04/02/18 Stop Date: 04/02/18 Status: Completedmorphine Sulfate 2 mg, 1 mL, Route: IVP, Drug form: INJ, ONCE, Dosing Weight 76.563, kg, Priority : STAT, Start date: 04/02/18 22:07:00 CDT, Stop date: 04/02/18 22:07:00 CDT Notes: (Same as:MORPhine Sulfate) Start Date: 04/02/18 Stop Date: 04/02/18 Status: CompletedNorco 7.5/325 oral tablet 1 tab, Route: PO, Drug Form: TAB, Dosing Weight 76.563, kg, ONCE, STAT, Start date: 04/02/18 17:58:00 CDT, Stop date: 04/02/18 17:58:00 CDT Start Date: 04/02/18 Stop Date: 04/02/18 Status: CompletedOmnipaque 350 injectable solution 100 mL, Route: IVP, Drug Form: SOLN, Dosing Weight 76.563, kg, ONCALL, GFR > 45 mL/min, STAT, Start date: 04/02/18 22:00:00 CDT, Duration: 1 doses or times Notes: (same as:Omnipaque 350).WASTE: F/P - Black; E - Municipal Trash Bin Start Date: 04/02/18 Stop Date: 04/02/18 Status: CompletedSaline Flush 0.9% 10 mL, Route: IVP, Drug Form: INJ, Dosing Weight 76.563, kg, PRN, PRN Line Flush , Start date: 04/02/18 21:16:00 CDT, Duration: 30 day, Stop date: 05/02/18 21:15 :00 CDT Notes: (Same as: BD Posiflush) Start Date: 04/02/18 Stop Date: 04/03/18 Status: Discontinuedtramadol 50 mg oral tablet 50 mg=1 tab, PO, Q6H, PRN Pain, X 3 day, # 12 tab, 0 Refill(s) Start Date: 04/02/18 Stop Date: 04/05/18 Status: OrderedZofran 4 mg, Route: IVP, Drug form: INJ, ONCE, Dosing Weight 76.563, kg, Priority: STAT , Start date: 04/02/18 19:08:00 CDT, Stop date: 04/02/18 19:08:00 CDT Start Date: 04/02/18 Stop Date: 04/02/18 Status: CompletedZofran 4 mg, Route: IVP, Drug form: INJ, ONCE, Dosing Weight 76.563, kg, Priority: STAT , Start date: 04/03/18 0:38:00 CDT, Stop date: 04/03/18 0:38:00 CDT Start Date: 04/03/18 Stop Date: 04/03/18 Status: Completed Results ELECTROLYTES Most recent to oldest [Reference Range]: 1 2 Sodium Lvl [135-145 mEq/L] 141 mEq/L (04/02/18 9:31 PM) Potassium Lvl [3.5-5.1 mEq/L] 4.6 mEq/L (04/02/18 9:31 PM) Chloride Lvl [95-109 mEq/L] 110 mEq/L *HI* (04/02/18 9:31 PM) CO2 [24-32 mEq/L] 26 mEq/L (04/02/18 9:31 PM) AGAP [10.0-20.0 mEq/L] 9.6 mEq/L *LOW* (04/02/18 9:31 PM) CHEM PANEL Most recent to oldest [Reference Range]: 1 2 Creatinine Lvl [0.50-1.40 mg/dL] 0.90 mg/dL (04/02/18 9:31 PM) eGFR 76 mL/min/1.73m2 1 *NA* (04/02/18 9:31 PM) BUN [7-22 mg/dL] 10 mg/dL (04/02/18 9:31 PM) B/C Ratio [6-25] 11 (04/02/18 9:31 PM) Glucose Lvl [70-99 mg/dL] 97 mg/dL (04/02/18 9:31 PM) Total Protein [6.4-8.4 g/dL] 7.1 g/dL (04/02/18 9:31 PM) Albumin Lvl [3.5-5.0 g/dL] 3.6 g/dL (04/02/18 9:31 PM) Globulin [2.7-4.2 g/dL] 3.5 g/dL (04/02/18 9:31 PM) A/G Ratio [0.7-1.6] 1.0 (04/02/18 9:31 PM) Calcium Lvl [8.5-10.5 mg/dL] 8.8 mg/dL (04/02/18 9:31 PM) ALT [0-65 unit/L] 24 unit/L (04/02/18 9:31 PM) AST [0-37 unit/L] 18 unit/L (04/02/18 9:31 PM) Alk Phos [39-136 unit/L] 89 unit/L (04/02/18 9:31 PM) Bili Total [0.2-1.3 mg/dL] 0.3 mg/dL (04/02/18 9:31 PM) 1Result Comment: The eGFR is calculated using the CKD-EPI formula. In most young , healthy individualsthe eGFR will be >90 mL/min/1.73m2. The eGFR declines with age. An eGFR of 60-89 may be normal insome populations, particularly the elderly, for whom the CKD-EPI formula has not been extensively validated. Use of the eGFR is not recommended in the following populations: Individuals with unstable creatinine concentrations, including patients and those with serious co-morbid conditions. Patients with extremes in muscle mass or diet. The data above are obtained from the National Kidney Disease Education Program ( NKDEP) which additionally recommends that when the eGFR is used in patients with extremes of body mass index for purposesof drug dosing, the eGFR should be multiplied by the estimated BMI.CARDIAC ENZYMES Most recent to oldest [Reference Range]: 1 2 Total CK [12-191 unit/L] 58 unit/L (04/02/18 9:31 PM) CK MB [0.5-3.6 ng/mL] 1.0 ng/mL (04/02/18 9:31 PM) CK MB Index [0.0-2.5] 1.7 (04/02/18 9:31 PM) Troponin-I [0.00-0.40 ng/mL] <0.02 ng/mL <0.02 ng/mL (04/03/18 12:06 AM) (04/02/18 9:31 PM) URINE CHEM Most recent to oldest [Reference Range]: 1 2 U Preg [Negative] Negative (04/02/18 6:32 PM) URINE AND STOOL Most recent to oldest [Reference Range]: 1 2 UA Turbidity [Clear] Slight *ABN* (04/02/18 6:32 PM) UA Color [Yellow] Light Yellow *NA* (04/02/18 6:32 PM) UA pH [5.0-8.0] 7.0 (04/02/18 6:32 PM) UA Spec Grav [<=1.030] 1.005 (04/02/18 6:32 PM) UA Glucose [Negative mg/dL] Negative mg/dL *NA* (04/02/18 6:32 PM) UA Blood [Negative] Negative (04/02/18 6:32 PM) UA Ketones [Negative mg/dL] Negative mg/dL *NA* (04/02/18 6:32 PM) UA Protein [Negative mg/dL] Negative mg/dL (04/02/18 6:32 PM) UA Urobilinogen [0.1-1.0 mg/dL] <=1.0 mg/dL *NA* (04/02/18 6:32 PM) UA Bili [Negative] Negative *NA* (04/02/18 6:32 PM) UA Leuk Est [Negative] Negative (04/02/18 6:32 PM) UA Nitrite [Negative] Negative (04/02/18 6:32 PM) UA WBC [0-5 /HPF] 3 /HPF (04/02/18 6:32 PM) UA RBC [0-2 /HPF] 1 /HPF (04/02/18 6:32 PM) UA Bacteria [None Seen /HPF] Many /HPF *ABN* (04/02/18 6:32 PM) UA Sq Epi [Few /LPF] Occasional /LPF *NA* (04/02/18 6:32 PM) UA Mucus [None Seen /LPF] Few /LPF *NA* (04/02/18 6:32 PM) HEMATOLOGY Most recent to oldest [Reference Range]: 1 2 WBC [3.7-10.4 K/CMM] 8.5 K/CMM (04/02/18 9:31 PM) RBC [4.20-5.40 M/CMM] 4.38 M/CMM (04/02/18 9:31 PM) Hgb [12.0-16.0 g/dL] 13.3 g/dL (04/02/18 9:31 PM) Hct [36.0-48.0 %] 40.6 % (04/02/18 9:31 PM) MCV [80.0-98.0 fL] 92.7 fL (04/02/18 9:31 PM) MCH [27.0-31.0 pg] 30.4 pg (04/02/18 9:31 PM) MCHC [32.0-36.0 g/dL] 32.8 g/dL (04/02/18 9:31 PM) RDW [11.5-14.5 %] 13.4 % (04/02/18 9:31 PM) MPV [7.4-10.4 fL] 8.6 fL (04/02/18 9:31 PM) Platelet [133-450 K/CMM] 348 K/CMM (04/02/18 9:31 PM) Segs [45.0-75.0 %] 54.0 % (04/02/18 9:31 PM) Lymphocytes [20.0-40.0 %] 35.4 % (04/02/18 9:31 PM) Monocytes [2.0-12.0 %] 6.9 % (04/02/18 9:31 PM) Eosinophils [0.0-4.0 %] 3.0 % (04/02/18 9:31 PM) Basophils [0.0-1.0 %] 0.7 % (04/02/18 9:31 PM) Segs-Bands # [1.5-8.1 K/CMM] 4.6 K/CMM (04/02/18 9:31 PM) Lymphocytes # [1.0-5.5 K/CMM] 3.0 K/CMM (04/02/18 9:31 PM) Monocytes # [0.0-0.8 K/CMM] 0.6 K/CMM (04/02/18 9:31 PM) Eosinophils # [0.0-0.5 K/CMM] 0.3 K/CMM (04/02/18 9:31 PM) Basophils # [0.0-0.2 K/CMM] 0.1 K/CMM (04/02/18 9:31 PM) Immunizations Given and Recorded Vaccine Date Status Refusal Reason measles/mumps/rubella virus vaccine 07/11/17 Given pneumococcal 23-valent vaccine 07/24/14 Given influenza virus vaccine, inactivated 07/24/14 Given Procedures Procedure Date Related Diagnosis Body Site Status Partial hysterectomy 2005 Completed Bilateral inguinal hernia repair Completed Cholecystectomy Completed Hernia repair Completed Hysterectomy Completed Social History Social History Type Response Alcohol Never Smoking Status Never smoker; Exposure to Tobacco Smoke None; Cigarette Smoking Last 365 Days No; Reg Smoking Cessation Counseling No entered on: 04/02/18 Assessment and Plan No data available for this section
--- OUTSIDE RECORDS SUMMARY | 2018-07-30 09:17 | XMS REPORT | Summary of Care ---
:1970 Author Organization [facility] Address [address], [place] [address]- Encounter HQ Julio Césarntr_emma(FIN) [id number] Date(s): 03/16/18 - 03/17/18 [facility] [address] [place] [address]- Discharge Disposition: Home or Self Care Attending Physician: Jesu Eagle MD Admitting Physician: Jesu Eagle MD Vital Signs Most recent to oldest 1 2 3 [Reference Range]: Height 157.48 cm 157.48 cm (03/16/18 1:07 PM) (03/16/18 9:01 AM) Temperature Oral [96.4-99.1 98.3 DegF 98.2 DegF 97.6 DegF DegF] (03/17/18 11:45 AM) (03/17/18 8:06 AM) (03/17/18 4:33 AM) Blood Pressure [90-140/60-90 102/65 mmHg 100/64 mmHg 100/69 mmHg mmHg] (03/17/18 11:45 AM) (03/17/18 8:06 AM) (03/17/18 4:33 AM) Respiratory Rate [14-20 BRMIN] 18 BRMIN 18 BRMIN 18 BRMIN (03/17/18 11:45 AM) (03/17/18 8:06 AM) (03/17/18 4:33 AM) Peripheral Pulse Rate [60-100 64 bpm 67 bpm 68 bpm bpm] (03/17/18 11:45 AM) (03/17/18 8:06 AM) (03/17/18 4:33 AM) Weight 76.364 kg 76.864 kg (03/16/18 1:07 PM) (03/16/18 9:01 AM) Body Mass Index 30.79 m2 30.99 m2 (03/16/18 1:07 PM) (03/16/18 9:01 AM) Problem List Condition Effective Dates Status Health Status Informant AA - Aortic aneurysm(Confirmed) 2010 Resolved Anxiety(Confirmed) Resolved Fibromyalgia(Confirmed) Resolved Fibromyalgia(Confirmed) Active Lupus(Confirmed) 2012 Resolved Migraines(Confirmed) Active Mixed anxiety and depressive Active disorder(Confirmed) Simple obesity(Confirmed) Active UTI (urinary tract Resolved infection)(Confirmed) Allergies, Adverse Reactions, Alerts Substance Reaction Severity Status codeine Active Levaquin Active metroNIDAZOLE Active Medications acetaminophen 650 mg, 2 tab, Route: PO, Drug form: TAB, Q4H, Dosing Weight 76.364, kg, PRN Pain 1-3/Temp > 100.4 F, Start date: 03/16/18 13:18:00 CDT, Duration: 30 day , Stop date: 04/15/18 13:17:00 CDT Notes: Do not exceed 4 gm/day. (Same as: Tylenol) Start Date: 03/16/18 Stop Date: 03/17/18 Status: Discontinuedacetaminophen-hydrocodone 325 mg-5 mg oral tablet 1 tab, Route: PO, Drug Form: TAB, Dosing Weight 76.364, kg, Q4H, PRN Pain Score 4-6, Start date: 03/16/18 13:18:00 CDT, Duration: 30 day, Stop date: 04/15/18 13 :17:00 CDT Notes: (Same as: [place] 325/5) Do not exceed 4gm/day of acetaminophen. Start Date: 03/16/18 Stop Date: 03/17/18 Status: DiscontinuedAl hydroxide/Mg hydroxide/simethicone 200 mg-200 mg-20 mg/5 mL oral suspension 30 mL, Route: PO, Drug Form: SUSP, Dosing Weight 76.364, kg, Q4H, PRN Indigestion, Start date: 03/16/18 13:45:00 CDT, Duration: 30 day, Stop date: 13:44:00 CDT Notes: (aluminum hydroxide-magnesium hyd-simethicone [id number]/5ml 30 ml ud [place]) Start Date: 03/16/18 Stop Date: 03/17/18 Status: Discontinuedbisacodyl 10 mg, 1 supp, Route: VA, Drug form: SUPP, Daily, Dosing Weight 76.364, kg, PRN Constipation, Start date: 03/16/18 13:45:00 CDT, Duration: 30 day, Stop date: 13:44:00 CDT Notes: (Same As: Dulcolax, [place]-Lax) Start Date: 03/16/18 Stop Date: 03/17/18 Status: DiscontinuedcefTRIAXone 2 gm, Route: IVPB, Drug form: PDR/INJ, ONCE, Dosing Weight 76.864, kg, Priority : STAT, Start date: 03/16/18 9:15:00 CDT, Stop date: 03/16/18 9:15:00 CDT, ABX Indication: Urinary Tract Infection Start Date: 03/16/18 Stop Date: 03/16/18 Status: Completedciprofloxacin 400 mg, 200 mL, Route: IVPB, Drug form: INJ, [id number], Dosing Weight 76.364, kg, Start date: 03/16/1814:00:00 CDT, Duration: 7 day, Stop date: 03/23/18 2:00:00 CDT, ABX Indication: Urinary Tract Infection Notes: Do not refrigerate Start Date: 03/16/18 Stop Date: 03/17/18 Status: Discontinuedciprofloxacin 500 mg oral tablet 500 mg=1 tab, PO, Q12H, for UTI and enteritis, X 3 day, # 6 tab, 0 Refill(s), Pharmacy: [facility] [id number] Start Date: 03/17/18 Stop Date: 03/20/18 Status: OrderedclonazePAM 0.5 mg, 1 tab, Route: PO, Drug form: TAB, Daily, Dosing Weight 76.364, kg, Start date: 03/17/18 21:00:00 CDT, Duration: 30 day, Stop date: 04/15/18 21:00: 00 CDT Notes: (Same As: KlonoPIN) Start Date: 03/17/18 Stop Date: 03/17/18 Status: CanceleddiphenhydrAMINE 25 mg, 1 cap, Route: PO, Drug form: CAP, Q6H, Dosing Weight 76.364, kg, PRN Itching, Start date: 03/16/18 13:45:00 CDT, Duration: 30 day, Stop date: 13:44:00 CDT Notes: (Same as: Benadryl) Start Date: 03/16/18 Stop Date: 03/17/18 Status: DiscontinuedDULoxetine 30 mg, 1 cap, Route: PO, Drug form: DRC, BID, Dosing Weight 76.364, kg, Start date: 03/16/18 21:00:00 CDT, Duration: 30 day, Stop date: 04/15/18 9:00:00 CDT Notes: (Same as: Cymbalta) (Do Not Crush) Start Date: 03/16/18 Stop Date: 03/17/18 Status: Discontinuedenoxaparin 40 mg, 0.4 mL, Route: SUB-Q, Drug form: INJ, [id number], Dosing Weight 76.364, kg , Start date: 03/16/18 14:00:00 CDT, Stop date: 04/14/18 14:00:00 CDT Notes: (Same as: Lovenox) Start Date: 03/16/18 Stop Date: 03/17/18 Status: DiscontinuedketOROLAC 15 mg/mL injectable solution 15 mg, Route: IVP, Drug form: INJ, ONCE, Dosing Weight 76.864, kg, Priority: STAT, Start date: 03/16/18 10:54:00 CDT, Stop date: 03/16/18 10:54:00 CDT Start Date: 03/16/18 Stop Date: 03/16/18 Status: Completedmorphine Sulfate 4 mg, 1 mL, Route: IVP, Drug form: SOLN, ONCE, Dosing Weight 76.864, kg, Priority: STAT, Start date:03/16/18 9:15:00 CDT, Stop date: 03/16/18 9:15:00 CDT Notes: (Same as:MORPhine Sulfate) Start Date: 03/16/18 Stop Date: 03/16/18 Status: Completedmultivitamin 1 tab, Route: PO, Drug Form: TAB, Dosing Weight 76.364, kg, Daily, Start date: 03/17/18 9:00:00 CDT,Duration: 30 day, Stop date: 04/15/18 9:00:00 CDT Notes: (Same as:Iveth)WASTE: F/P - Black; E - Municipal Trash Bin Take with food. Start Date: 03/17/18 Stop Date: 03/17/18 Status: Discontinuedmultivitamin 1 tablet, PO, Daily, 0 Refill(s) Start Date: 03/16/18 Status: OrderedOmnipaque 300 injectable solution 85 mL, Route: IVP, Drug Form: SOLN, Dosing Weight 76.864, kg, ONCALL, GFR > 45 mL/min, STAT, Start date: 03/16/18 10:50:00 CDT, Duration: 1 doses or times Notes: (Same as:Omnipaque 300).WASTE: F/P - Black; E - Municipal Trash Bin Start Date: 03/16/18 Stop Date: 03/16/18 Status: Completedondansetron 4 mg, 2 mL, Route: IVP, Drug form: INJ, Q6H, Dosing Weight 76.364, kg, PRN Nausea & Vomiting, Start date: 03/16/18 13:18:00 CDT, Duration: 30 day, Stop date: 04/15/18 13:17:00 CDT Notes: (Same as: Samira) MEDICATION WASTE Product Size: 4 mgProduct Wasted: ___ mg Start Date: 03/16/18 Stop Date: 03/17/18 Status: Discontinuedondansetron 4 mg, 2 mL, Route: IVP, Drug form: INJ, ONCE, Dosing Weight 76.864, kg, Priority : STAT, Start date: 03/16/18 9:15:00 CDT, Stop date: 03/16/18 9:15:00 CDT Notes: (Same as: Samira) MEDICATION WASTE Product Size: 4 mgProduct Wasted: ___ mg Start Date: 03/16/18 Stop Date: 03/16/18 Status: Completedondansetron 4 mg, 2 mL, Route: IVP, Drug form: INJ, Q8H, Dosing Weight 76.364, kg, PRN Nausea & Vomiting, Start date: 03/16/18 13:45:00 CDT, Duration: 30 day, Stop date: 04/15/18 13:44:00 CDT Notes: (Same as: Zofran) MEDICATION WASTE Product Size: 4 mgProduct Wasted: ___ mg Start Date: 03/16/18 Stop Date: 03/17/18 Status: DiscontinuedPhenergan 12.5 mg, 0.5 mL, Route: IM, Drug form: INJ, ONCE, Dosing Weight 76.364, kg, Priority: STAT, Start date: 03/16/18 19:26:00 CDT, Stop date: 03/16/18 19:26:00 CDT Notes: Do not give IV push. (Same as: Phenergan) Start Date: 03/16/18 Stop Date: 03/16/18 Status: CompletedSaline Flush 0.9% 10 ml, Route: IVP, Drug Form: INJ, Dosing Weight 76.364, kg, PRN, PRN Line Flush , Start date: 03/16/18 13:18:00 CDT, Duration: 30 day, Stop date: 04/15/18 13:17 :00 CDT Notes: (Same as: BD Posiflush) Start Date: 03/16/18 Stop Date: 03/17/18 Status: DiscontinuedSaline Flush 0.9% 10 mL, Route: IVP, Drug Form: INJ, Dosing Weight 76.864, kg, PRN, PRN Line Flush , Start date: 03/16/18 9:15:00 CDT, Duration: 30 day, Stop date: 04/15/18 9:14: 00 CDT Notes: (Same as: BD Posiflush) Start Date: 03/16/18 Stop Date: 03/17/18 Status: Discontinuedsimethicone 80 mg, 1 tab, Route: PO, Drug form: CHEWTAB, Q6H, Dosing Weight 76.364, kg, PRN Gas, Start date: 03/16/18 13:45:00 CDT, Duration: 2 doses or times, Stop date: Limited # of times Notes: (Same as: Mylicon) Start Date: 03/16/18 Stop Date: 03/17/18 Status: DiscontinuedSodium Chloride 0.9% (Bolus) IV 1,000 mL, 1000 ml/hr, Infuse Over: 1 hr, Route: IV, 1,000, Drug form: INJ, ONCE , Priority: STAT, Dosing Weight 76.864 kg, Start date: 03/16/18 9:15:00 CDT, Stop date: 03/16/18 9:15:00 CDT Start Date: 03/16/18 Stop Date: 03/16/18 Status: CompletedSodium Chloride 0.9% IV 1,000 mL 1,000 mL, Rate: 125 ml/hr, Infuse over: 8 hr, Route: IV, Dosing Weight 76.364 kg , Total Volume: 1,000, Start date: 03/16/18 13:18:00 CDT, Duration: 30 day, Stop date: 04/15/18 13:17:00 CDT, 1.85, m2 Start Date: 03/16/18 Stop Date: 03/17/18 Status: DiscontinuedSUMAtriptan 50 mg, 2 tab, Route: PO, Drug form: TAB, ONCE, Dosing Weight 76.364, kg, PRN Headache 6-10, Start date: 03/16/18 13:19:00 CDT Notes: (Same As: Imitrex) Start Date: 03/16/18 Stop Date: 03/16/18 Status: CompletedTessalon Perles 100 mg, 1 cap, Route: PO, Drug form: CAP, Q8H, Dosing Weight 76.364, kg, PRN Cough, Start date: 03/16/18 13:45:00 CDT, Duration: 30 day, Stop date: 04/15/18 13:44:00 CDT Notes: (Same As: Tessalon Perles)"Do Not Crush" Start Date: 03/16/18 Stop Date: 03/17/18 Status: Discontinuedtopiramate 100 mg, 1 tab, Route: PO, Drug form: TAB, BID, Dosing Weight 76.364, kg, Start date: 03/16/18 21:00:00 CDT, Duration: 30 day, Stop date: 04/15/18 9:00:00 CDT Notes: (Same As: Topamax)"Do Not Crush" Start Date: 03/16/18 Stop Date: 03/17/18 Status: Discontinuedtramadol 50 mg oral tablet 50 mg=1 tab, PO, BID, X 15 day, # 30 tab, 0 Refill(s) Start Date: 03/17/18 Stop Date: 04/01/18 Status: OrderedVitamin D3 2,000 IntlUnit, PO, Daily, 0 Refill(s) Start Date: 03/16/18 Status: OrderedWellbutrin SR 100 mg, 1 tab, Route: PO, Drug form: ERTAB, Daily, Dosing Weight 76.364, kg, Start date: 03/17/18 9:00:00 CDT, Duration: 30 day, Stop date: 04/15/18 9:00:00 CDT Notes: Do not crush or chew. (Same As: Wellbutrin SR) Start Date: 03/17/18 Stop Date: 03/17/18 Status: DiscontinuedWellbutrin SR 100 mg/12 hours oral tablet, extended release 100 mg=1 tab, PO, Daily, 0 Refill(s) Start Date: 03/16/18 Status: OrderedZofran ODT 4 mg oral tablet, disintegrating 4 mg=1 tab, PO, BID, PRN Nausea and Vomiting, Dissolve tab under tongue, # 10 tab, 0 Refill(s), Pharmacy: [facility] [id number] Start Date: 03/17/18 Stop Date: 03/22/18 Status: Ordered Results ELECTROLYTES Most recent to oldest [Reference Range]: 1 2 Sodium Lvl [135-145 mEq/L] 142 mEq/L 138 mEq/L (03/17/18 5:53 AM) (03/16/18 9:49 AM) Potassium Lvl [3.5-5.1 mEq/L] 3.7 mEq/L 3.9 mEq/L (03/17/18 5:53 AM) (03/16/18 9:49 AM) Chloride Lvl [95-109 mEq/L] 112 mEq/L 108 mEq/L *HI* (03/16/18 9:49 AM) (03/17/18 5:53 AM) CO2 [24-32 mEq/L] 26 mEq/L 23 mEq/L (03/17/18 5:53 AM) *LOW* (03/16/18 9:49 AM) AGAP [10.0-20.0 mEq/L] 7.7 mEq/L 10.9 mEq/L *LOW* (03/16/18 9:49 AM) (03/17/18 5:53 AM) CHEM PANEL Most recent to oldest [Reference Range]: 1 2 Creatinine Lvl [0.50-1.40 mg/dL] 0.76 mg/dL 0.92 mg/dL (03/17/18 5:53 AM) (03/16/18 9:49 AM) eGFR 93 mL/min/1.73m2 1 74 mL/min/1.73m2 2 *NA* *NA* (03/17/18 5:53 AM) (03/16/18 9:49 AM) BUN [7-22 mg/dL] 4 mg/dL 10 mg/dL *LOW* (03/16/18 9:49 AM) (03/17/18 5:53 AM) B/C Ratio [6-25] 5 11 *LOW* (03/16/18 9:49 AM) (03/17/18 5:53 AM) Glucose Lvl [70-99 mg/dL] 89 mg/dL 87 mg/dL (03/17/18 5:53 AM) (03/16/18 9:49 AM) Total Protein [6.4-8.4 g/dL] 5.9 g/dL 7.3 g/dL *LOW* (03/16/18 9:49 AM) (03/17/18 5:53 AM) Albumin Lvl [3.5-5.0 g/dL] 3.0 g/dL 3.7 g/dL *LOW* (03/16/18 9:49 AM) (03/17/18 5:53 AM) Globulin [2.7-4.2 g/dL] 2.9 g/dL 3.6 g/dL (03/17/18 5:53 AM) (03/16/18 9:49 AM) A/G Ratio [0.7-1.6] 1.0 1.0 (03/17/18 5:53 AM) (03/16/18 9:49 AM) Calcium Lvl [8.5-10.5 mg/dL] 8.1 mg/dL 8.6 mg/dL *LOW* (03/16/18 9:49 AM) (03/17/18 5:53 AM) Phosphorus [2.5-4.5 mg/dL] 2.8 mg/dL (03/17/18 5:53 AM) Magnesium Lvl [1.8-2.4 mg/dL] 2.2 mg/dL (03/17/18 5:53 AM) ALT [0-65 unit/L] 27 unit/L 29 unit/L (03/17/18 5:53 AM) (03/16/18 9:49 AM) AST [0-37 unit/L] 19 unit/L 21 unit/L (03/17/18 5:53 AM) (03/16/18 9:49 AM) Alk Phos [39-136 unit/L] 74 unit/L 101 unit/L (03/17/18 5:53 AM) (03/16/18 9:49 AM) Bili Total [0.2-1.3 mg/dL] 0.2 mg/dL 0.2 mg/dL (03/17/18 5:53 AM) (03/16/18 9:49 AM) Lipase Lvl [73-393 unit/L] 192 unit/L (03/16/18 9:49 AM) Lactic Acid Lvl [0.5-2.2 mMol/L] 1.0 mMol/L (03/16/18 9:49 AM) 1Result Comment: The eGFR is calculated using [...] eGFR should be multiplied by the estimated BMI.2Result Comment: The eGFR is calculated using the CKD-EPI formula. In most young, healthy individualsthe eGFR will be >90 mL/min/1.73m2. [...] eGFR should be multiplied by the estimated BMI.URINE AND STOOL Most recent to oldest [Reference Range]: 1 2 UA Turbidity [Clear] Slight *ABN* (03/16/18 9:49 AM) UA Color [Yellow] Red *ABN* (03/16/18 9:49 AM) UA pH [5.0-8.0] 5.0 (03/16/18 9:49 AM) UA Spec Grav [<=1.030] 1.010 (03/16/18 9:49 AM) UA Glucose [Negative mg/dL] Negative mg/dL *NA* (03/16/18 9:49 AM) UA Blood [Negative] Small *ABN* (03/16/18 9:49 AM) UA Ketones [Negative mg/dL] Negative mg/dL *NA* (03/16/18 9:49 AM) UA Protein [Negative mg/dL] 100 mg/dL *ABN* (03/16/18 9:49 AM) UA Urobilinogen [0.1-1.0 mg/dL] 4.0 mg/dL *HI* (03/16/18 9:49 AM) UA Bili [Negative] Negative *NA* (03/16/18 9:49 AM) UA Leuk Est [Negative] Negative (03/16/18 9:49 AM) UA Nitrite [Negative] Positive *ABN* (03/16/18 9:49 AM) UA WBC [0-5 /HPF] 63 /HPF *HI* (03/16/18 9:49 AM) UA RBC [0-2 /HPF] 2 /HPF (03/16/18 9:49 AM) UA Bacteria [None Seen /HPF] Many /HPF *ABN* (03/16/18 9:49 AM) UA Sq Epi [Few /LPF] Occasional /LPF *NA* (03/16/18 9:49 AM) UA Amorph Petra [None Seen /HPF] Moderate /HPF *ABN* (03/16/18 9:49 AM) UA Mucus [None Seen /LPF] Few /LPF *NA* (03/16/18 9:49 AM) HEMATOLOGY Most recent to oldest [Reference Range]: 1 2 WBC [3.7-10.4 K/CMM] 7.1 K/CMM 12.5 K/CMM (03/17/18 5:53 AM) *HI* (03/16/18 9:49 AM) RBC [4.20-5.40 M/CMM] 3.99 M/CMM 4.69 M/CMM *LOW* (03/16/18 9:49 AM) (03/17/18 5:53 AM) Hgb [12.0-16.0 g/dL] 12.1 g/dL 14.0 g/dL (03/17/18 5:53 AM) (03/16/18 9:49 AM) Hct [36.0-48.0 %] 37.1 % 43.1 % (03/17/18 5:53 AM) (03/16/18 9:49 AM) MCV [80.0-98.0 fL] 92.9 fL 92.0 fL (03/17/18 5:53 AM) (03/16/18 9:49 AM) MCH [27.0-31.0 pg] 30.4 pg 29.9 pg (03/17/18 5:53 AM) (03/16/18 9:49 AM) MCHC [32.0-36.0 g/dL] 32.7 g/dL 32.5 g/dL (03/17/18 5:53 AM) (03/16/18 9:49 AM) RDW [11.5-14.5 %] 13.3 % 13.6 % (03/17/18 5:53 AM) (03/16/18 9:49 AM) MPV [7.4-10.4 fL] 8.9 fL 9.3 fL (03/17/18 5:53 AM) (03/16/18 9:49 AM) Platelet [133-450 K/CMM] 296 K/CMM 353 K/CMM (03/17/18 5:53 AM) (03/16/18 9:49 AM) Segs [45.0-75.0 %] 50.0 % 75.4 % (03/17/18 5:53 AM) *HI* (03/16/18 9:49 AM) Bands [0.0-11.0 %] 0.0 % (03/17/18 5:53 AM) Lymphocytes [20.0-40.0 %] 42.0 % 16.9 % *HI* *LOW* (03/17/18 5:53 AM) (03/16/18 9:49 AM) Atypical Lymphs [<=0.0 %] 0.0 % (03/17/18 5:53 AM) Monocytes [2.0-12.0 %] 4.0 % 5.1 % (03/17/18 5:53 AM) (03/16/18 9:49 AM) Eosinophils [0.0-4.0 %] 4.0 % 2.1 % (03/17/18 5:53 AM) (03/16/18 9:49 AM) Basophils [0.0-1.0 %] 0.5 % (03/16/18 9:49 AM) Segs-Bands # [1.5-8.1 K/CMM] 3.6 K/CMM 9.4 K/CMM (03/17/18 5:53 AM) *HI* (03/16/18 9:49 AM) Lymphocytes # [1.0-5.5 K/CMM] 3.0 K/CMM 2.1 K/CMM (03/17/18 5:53 AM) (03/16/18 9:49 AM) Monocytes # [0.0-0.8 K/CMM] 0.3 K/CMM 0.6 K/CMM (03/17/18 5:53 AM) (03/16/18 9:49 AM) Eosinophils # [0.0-0.5 K/CMM] 0.3 K/CMM 0.3 K/CMM (03/17/18 5:53 AM) (03/16/18 9:49 AM) Basophils # [0.0-0.2 K/CMM] 0.1 K/CMM (03/16/18 9:49 AM) Tot Cell Ct 100 *NA* (03/17/18 5:53 AM) RBC Morph Normal Normal (03/17/18 5:53 AM) (03/16/18 9:49 AM) Plt Morph Normal Normal (03/17/18 5:53 AM) (03/16/18 9:49 AM) PT [12.0-14.7 seconds] 12.4 seconds (03/17/18 5:53 AM) INR [0.85-1.17] 0.92 (03/17/18 5:53 AM) PTT [22.9-35.8 seconds] 35.9 seconds *HI* (03/17/18 5:53 AM) Immunizations Given and Recorded Vaccine Date Status [...] Reg Smoking Cessation Counseling No entered on: 03/16/18 Assessment and Plan Extracted from: Title: Clinical Document Author: Jesu Eagle MD Date: 03/18/18 [facility] Discharge Summary: Date of Admit: 03/16/18 Date of Discharge: 03/17/18 Disposition: Home Admitting Diagnosis: Abdominal pain Discharge Diagnosis: UTI (POA) and suspected enteritis Secondary Diagnosis: fibromyalgia, anxiety, depression Follow Up With PCP, Call for appointment, within: 1 Week, reason: Primary Care Physician follow up post hospitalization Home Diet: Diet Adult Regular D/C medications: see medication reconcilation Consulting Physicians: (none on file) Please notify your physician if any of the following occur: Nausea, Pain, Signs of infection Other Information Special Home Care Instructions: 1. Ok to return to work on Sunday (03/20) Hospitalization Summary: The patient was admitted for abdominal pain. This was found to be likely due to a combination of UTI (POA) and enteritis. The patient was started on empiric ciprofloxacin and IVF. The patient was dis charged home to complete antibiotics once her pain was controlled and she was able to tolerate oral intake. Time spent on discharge: greater than 30 minutes spent Please see hospitalist progress note from the date of discharge for additional details on physical exam and medical care. Extracted from: Title: Hospitalist PN Author: Jesu Eagle MD Date: 03/17/18 [facility] Hospitalist Progress Note Subjective: The patient feels better, now tolerating liquid diet and oral meds; no diarrhea Assessment/Plan: 1. Abdominal pain - likely secondary to either UTI or enteritis - leukocytosis resolved with empiric abx - patient reports hives once while taking a combinatin of levaquin/flagyl, but she states that she has taken ciprofloxacin on numerous times without any adverse reaction 2. UTI (POA) - f/u cultures - improving on empiric ciprofloxacin 3. Suspected enteritis - resolving on empiric IV ciprofloxacin - patient states that she has been tolerating oral diet well even prior to admission - CT scan shows: 1. Correlate for any evidence for small bowel ileus or enteritis. No evidence for bowel obstruction. 2. Fatty liver. 3. Cholecystectomy. 4. Normal appendix. 4. Fibromyalgia - checked [place] [employer] ... no evidence of narcotic seeking behaviour 5. possible Aortic aneurysm - following with cardiology as outpatient 6. Anxiety/Depression - continue home meds 7. Dehydration - resolved with IVF 8. DVT/GI prophylaxis - lovenox 9. Full code Objective: General: Alert, NAD, orient x 3 Cardiac: regular rate and rhythm Lung: Clear to auscultation bilaterally Abdomen: soft, nontender, nondistended Ext: no edema Vitals and Temp: Vitals Tmp(F) Pulse BP RR SpO2 FIO2 03/17 08:06 98.2 67 100/64 18 96 --- 03/17 04:33 97.6 68 100/69 18 97 --- 03/16 23:03 97.5 74 101/65 18 95 --- 03/16 19:28 97.4 74 109/75 18 99 --- 03/16 16:29 97.4 74 99/62 18 99 --- 24 Hr Tmax: 98.2F (36.78c) at 03/17 08:06 Vital Signs are the last 5 in the past 48 hours. Medications (25) Active Scheduled Meds (7): 03/16/18 DULoxetine 30 mg PO BID 03/17/18 buPROPion (Wellbutrin SR) 100 mg PO Daily 03/16/18 ciprofloxacin 400 mg IVPB [id number] 200 ml/hr 03/17/18 clonazePAM 0.5 mg PO Daily 03/16/18 enoxaparin 40 mg SUB-Q [id number] 03/17/18 multivitamin 1 tab PO Daily 03/16/18 topiramate 100 mg PO BID Unscheduled Meds: None PRN Meds (11): 03/16/18 Al hydroxide/Mg hydroxide/simethicone (Al hydroxide/Mg hydroxide/ simethicone 200 mg-200 mg-20 mg/5 mL oral suspension) 30 mL PO Q4H 03/16/18 acetaminophen-hydrocodone (acetaminophen-hydrocodone 325 mg-5 mg oral tablet) 1 tab PO Q4H 03/16/18 acetaminophen 650 mg PO Q4H 03/16/18 benzonatate (Tessalon Perles) 100 mg PO Q8H 03/16/18 bisacodyl 10 mg VA Daily 03/16/18 diphenhydrAMINE 25 mg PO Q6H 03/16/18 ondansetron 4 mg IVP Q6H 03/16/18 ondansetron 4 mg IVP Q8H 03/16/18 simethicone 80 mg PO Q6H 03/16/18 sodium chloride (Saline Flush 0.9%) 10 mL IVP PRN 03/16/18 sodium chloride (Saline Flush 0.9%) 10 ml IVP PRN One Time Meds (6): 03/16/18 (Completed) Sodium Chloride 0.9% IV (Sodium Chloride 0.9% (Bolus) IV ) 1,000 mL IV ONCE 1000 ml/hr 03/16/18 (Completed) cefTRIAXone 2 gm IVPB ONCE 03/16/18 (Completed) ketOROLAC (ketOROLAC 15 mg/mL injectable solution) 15 mg IVP ONCE 03/16/18 (Completed) morphine Sulfate 4 mg IVP ONCE 03/16/18 (Completed) ondansetron 4 mg IVP ONCE 03/16/18 (Completed) promethazine (Phenergan) 12.5 mg IM ONCE Continuous Infusions (1): 03/16/18 Sodium Chloride 0.9% IV 1,000 mL 1,000 mL 125 ml/hr Labs (Last four charted values) WBC 7.1 (MAR 17) H 12.5 (MAR 16) Hgb 12.1 (MAR 17) 14.0 (MAR 16) Hct 37.1 (MAR 17) 43.1 (MAR 16) Plt 296 (MAR 17) 353 (MAR 16) Na 142 (MAR 17) 138 (MAR 16) K 3.7 (MAR 17) 3.9 (MAR 16) CO2 26 (MAR 17) L 23 (MAR 16) Cl H 112 (MAR 17) 108 (MAR 16) Cr 0.76 (MAR 17) 0.92 (MAR 16) BUN L 4 (MAR 17) 10 (MAR 16) Glucose Random 89 (MAR 17) 87 (MAR 16) Mg 2.2 (MAR 17) Phos 2.8 (MAR 17) Ca L 8.1 (MAR 17) 8.6 (MAR 16) PT 12.4 (MAR 17) INR 0.92 (MAR 17) PTT H 35.9 (MAR 17) Extracted from: Title: Clinical Document Author: Jesu Eagle MD Date: 03/16/18 [facility] History and Physicial CC: Abdominal pain HPI: 47 y.o. lady with fibromyalgia, migraines, anxiety/depression, was sent to ED from an urgent care clinic for 1 week history of progressively worsening abdominal pain. The patient reports some diarrhea, but denies nausea or vomiting. Labs in ED were notable for UTI and possible ileus vs enteritis. The patient denies any urinary complaints or history of frequent UTI. 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 Tobacco smoke exposure: None. Did the Patient Smoke Cigarettes Anytime During the Last 365 Days? No. Cessation Counseling Provided? No. Details: Use: Never smoker. Tobacco smoke exposure: None. Did the Patient Smoke Cigarettes Anytime During the Last 365 Days? No. Cessation Counseling Provided? No. Details: Use: Never smoker. Tobacco smoke exposure: None. Did the Patient Smoke Cigarettes Anytime During the Last 365 Days? No. Cessation Counseling Provided? No. ROS: Constitutional: no fever/chills, weight loss, fatigue Eyes: no changes to vision HEENT: no change to hearing Cardiovascular: no chest pain, palpitations Respiratory: no dyspnea, cough Gastrointestinal: no nausea, vomiting, + diarrhea, + pain Genitourinary: no dysuria, hematuria Skin: no rash Neurologic: no tremor, seizure, focal deficit Hematologic: no bleeding Medications: No qualifying data available Medications (18) Active Scheduled Meds (7): 03/16/18 DULoxetine 30 mg PO BID 03/17/18 buPROPion (Wellbutrin SR) 100 mg PO Daily 03/16/18 ciprofloxacin 400 mg IVPB [id number] 03/17/18 clonazePAM 0.5 mg PO Daily 03/16/18 enoxaparin 40 mg SUB-Q [id number] 03/17/18 multivitamin PO Daily 03/16/18 topiramate 100 mg PO BID Unscheduled Meds: None PRN Meds (5): 03/16/18 acetaminophen-hydrocodone (acetaminophen-hydrocodone 325 mg-5 mg oral tablet) 1 tab PO Q4H 03/16/18 acetaminophen 650 mg PO Q4H 03/16/18 ondansetron 4 mg IVP Q6H 03/16/18 sodium chloride (Saline Flush 0.9%) 10 mL IVP PRN 03/16/18 sodium chloride (Saline Flush 0.9%) 10 ml IVP PRN One Time Meds (5): 03/16/18 (Completed) Sodium Chloride 0.9% IV (Sodium Chloride 0.9% (Bolus) IV ) 1,000 mL IV ONCE 1000 ml/hr 03/16/18 (Completed) cefTRIAXone 2 gm IVPB ONCE 03/16/18 (Completed) ketOROLAC (ketOROLAC 15 mg/mL injectable solution) 15 mg IVP ONCE 03/16/18 (Completed) morphine Sulfate 4 mg IVP ONCE 03/16/18 (Completed) ondansetron 4 mg IVP ONCE Continuous Infusions (1): 03/16/18 Sodium Chloride 0.9% IV 1000 mL 1,000 mL 125 ml/hr [facility] A/G Ratio: 1 (03/16/18) AGAP: 10.9 mEq/L (03/16/18) Albumin Lvl: 3.7 g/dL (03/16/18) Alk Phos: 101 unit/L (03/16/18) ALT: 29 unit/L (03/16/18) AST: 21 unit/L (03/16/18) B/C Ratio: 11 (03/16/18) Basophils: 0.5 % (03/16/18) Basophils #: 0.1 K/CMM (03/16/18) Bili Total: 0.2 mg/dL (03/16/18) BUN: 10 mg/dL (03/16/18) Calcium Lvl: 8.6 mg/dL (03/16/18) Chloride Lvl: 108 mEq/L (03/16/18) CO2: 23 mEq/L Low (03/16/18) Creatinine Lvl: 0.92 mg/dL (03/16/18) eGFR: 74 mL/min/1.73m2 (03/16/18) Eosinophils: 2.1 % (03/16/18) Eosinophils #: 0.3 K/CMM (03/16/18) Globulin: 3.6 g/dL (03/16/18) Glucose Lvl: 87 mg/dL (03/16/18) Hct: 43.1 % (03/16/18) Hgb: 14 g/dL (03/16/18) Lactic Acid Lvl: 1 mMol/L (03/16/18) Lipase Lvl: 192 unit/L (03/16/18) Lymphocytes: 16.9 % Low (03/16/18) Lymphocytes #: 2.1 K/CMM (03/16/18) MCH: 29.9 pg (03/16/18) MCHC: 32.5 g/dL (03/16/18) MCV: 92 fL (03/16/18) Monocytes: 5.1 % (03/16/18) Monocytes #: 0.6 K/CMM (03/16/18) MPV: 9.3 fL (03/16/18) Platelet: 353 K/CMM (03/16/18) Plt Morph: Normal (03/16/18) Potassium Lvl: 3.9 mEq/L (03/16/18) RBC: 4.69 M/CMM (03/16/18) RBC Morph: Normal (03/16/18) RDW: 13.6 % (03/16/18) Segs: 75.4 % High (03/16/18) Segs-Bands #: 9.4 K/CMM High (03/16/18) Sodium Lvl: 138 mEq/L (03/16/18) Total Protein: 7.3 g/dL (03/16/18) UA Amorph Petra: iModerate Abnormal (03/16/18) UA Bacteria: iMany Abnormal (03/16/18) UA Bili: NEG (03/16/18) UA Blood: iSmall Abnormal (03/16/18) UA Color: cRed Abnormal (03/16/18) UA Glucose: NEG (03/16/18) UA Ketones: NEG (03/16/18) UA Leuk Est: NEG (03/16/18) UA Mucus: cFew (03/16/18) UA Nitrite: POS Abnormal (03/16/18) UA pH: 5 (03/16/18) UA Protein: c100 Abnormal (03/16/18) UA RBC: 2 /HPF (03/16/18) UA Spec Grav: 1.01 (03/16/18) UA Sq Epi: iOCC (03/16/18) UA Turbidity: 01 Abnormal (03/16/18) UA Urobilinogen: 4 mg/dL High (03/16/18) UA WBC: 63 /HPF High (03/16/18) WBC: 12.5 K/CMM High (03/16/18) Physical Exam: Vitals and Temp: Vitals Tmp(F) Pulse BP RR SpO2 FIO2 03/16 13:07 97.4 60 104/67 18 100 --- 03/16 11:07 97.9 74 111/78 18 99 --- 03/16 09:01 98 71 121/81 18 100 --- 24 Hr Tmax: 98F (36.67c) at 03/16 09:01 Vital Signs are the last 5 in the past 48 hours. Gen: alert, orient x 3, NAD HEENT: PERRL, mucus membranes moist Neck: no bruit CV: RRR, no murmur Lung: Clear to ausculatation Abd: soft, mildly tender lower abdomen, no guard/rebound Ext: no edema Skin: no rash Pulses: 2+ radial and DP Neuro: no gross focal deficits, no tremor Psychiatric: normal affect Assessment and Plan: 1. Abdominal pain - likely secondary to either UTI or enteritis - will cover with empiric abx - patient reports hives once while taking a combinatin of levaquin/flagyl, but she states that she has taken ciprofloxacin on numerous times without any adverse reaction 2. UTI (POA) - f/u cultures - start on empiric IV ciprofloxacin 3. Possible enteritis - start on empiric IV ciprofloxacin - patient states that she has been tolerating oral diet well - CT scan shows: 1. Correlate for any evidence for small bowel ileus or enteritis. No evidence for bowel obstruction. 2. Fatty liver. 3. Cholecystectomy. 4. Normal appendix. 4. 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 possible Aortic aneurysm - following with cardiology as outpatient 6. Anxiety/Depression - continue home meds 7. Dehydration - IVF 8. DVT/GI prophylaxis - lovenox 9. Full code
--- OUTSIDE RECORDS SUMMARY | 2018-07-30 09:17 | XMS REPORT | Summary of Care ---
:1970 Author Organization [facility] Address [address] [place] [address], [address] [place] [id number]- Encounter HQ Encntr_alias(FIN) [id number] Date(s): 04/02/18 - 04/02/18 [facility] [address] [place] [address], [place] [address] - [phone] Attending Physician: Analisa Knight MD Vital Signs No data available for this section Problem List Condition Effective Dates Status Health Status Informant AA - Aortic aneurysm(Confirmed) 2010 Resolved Anxiety(Confirmed) Resolved Chest pain(Confirmed) Active Fibromyalgia(Confirmed) Resolved Fibromyalgia(Confirmed) Active Acute lumbar Active radiculopathy(Confirmed) Lupus(Confirmed) 2012 Resolved Migraines(Confirmed) Active Mixed anxiety and depressive Active disorder(Confirmed) Simple obesity(Confirmed) Active UTI (urinary tract Resolved infection)(Confirmed) Allergies, Adverse Reactions, Alerts Substance Reaction Severity Status codeine Active Levaquin Active metroNIDAZOLE Active Medications No data available for this section Results No data available for this section Immunizations Given and Recorded Vaccine Date Status Refusal Reason measles/mumps/rubella virus vaccine 07/11/17 Given pneumococcal 23-valent vaccine 07/24/14 Given influenza virus vaccine, inactivated 07/24/14 Given Procedures Procedure Date Related Diagnosis Body Site Status Partial hysterectomy 2006 Completed Bilateral inguinal hernia repair Completed Cholecystectomy Completed Hernia repair Completed Hysterectomy Completed Social History Social History Type Response Alcohol Never Smoking Status Never smoker; Exposure to Tobacco Smoke None; Cigarette Smoking Last 365 Days No; Reg Smoking Cessation Counseling No entered on: 04/02/18 Assessment and Plan No data available for this section
--- OUTSIDE RECORDS SUMMARY | 2018-07-30 09:17 | XMS REPORT | Summary of Care ---
:1970 Author Organization [facility] [place] Address [address], [place] [address]- Encounter HQ Encntr_alias(FIN) [id number] Date(s): 11/20/17 - 11/21/17 [facility] [place] [address], [place] [address] - [phone] Vital Signs No data available for this [...] Reg Smoking Cessation Counseling No entered on: 08/06/17 Assessment and Plan No data available for this section
--- OUTSIDE RECORDS SUMMARY | 2018-07-30 09:18 | XMS REPORT | Summary of Care ---
:1970 Author Name Chloé Mclaughlin M.A. Address [facility] Unavailable , Care Team Providers Name Role Phone GINA FLOYD M.D. Unavailable Unavailable OSKAR MATHIS, DEBBIE DANIEL Unavailable Unavailable Unavailable Unavailable Unavailable Functional Status Name Dates Details Functional status health issues are not documented Status: Name Dates Details Cognitive status health issues are not documented Status: Problems Name Dates Details Vaginal itching (698.1, N89.8) Status: Active Vaginal itching (698.1, N89.8) Status: Active Ovarian cyst (620.2, N83.209) Status: Active Postmenopausal HRT (hormone replacement therapy) (V07.4, Z79.890) Status: Active Vulvar itching (698.1, L29.2) Status: Active Medications Name Dates Details Augmentin SUSR Refills: 0 Active LamoTRIgine 25 MG Oral Tablet Refills: 0 Active Estradiol 0.5 MG Oral Tablet TAKE 1 TABLET DAILY DIRECTED. Quantity: 90 Refills: 3 GINA FLOYD M.D. Start : 15-Jul-2018 Active Nystatin-Triamcinolone 769498-7.1 UNIT/GM-% External Cream APPLY SPARINGLY TO AFFECTED AREA(S) TWICE DAILY Quantity: 60 Refills: 0 GINA FLOYD M.D. Start : 15-Jul-2018 Active Fluconazole 150 MG Oral Tablet TAKE 1 TABLET NOW AND REPEAT IN 3 DAYS. Quantity: 2 Refills: 0 GINA FLOYD M.D. Start : 25-Jul-2018 Active Estradiol 0.1 MG/GM Vaginal Cream APPLY A PEA-SIZED AMOUNT TO VAGINAL OPENING DAILY X 2 WEEKS Quantity: 1 Refills: 0 GINA FLOYD M.D. Start : 29-Jul-2018 Active 42.5 GM Tube Allergies and Adverse Reactions Name Dates Details codeine (Allergy) Status: Active Flagyl (Allergy) Status: Active Levaquin TABS (Allergy) Status: Active Past Medical History Name Dates Details History of aortic aneurysm (V12.59, Z86.79) Status: Resolved History of depression (V11.8, Z86.59) Status: Resolved History of fibromyalgia (V13.59, Z87.39) Status: Resolved Procedures Procedure Dates Details [[facility]] CULTURE, URINE, ROUTINE Date: 29-Jul-2018 History of section Completed History of Cholecystectomy Completed History of Hysterectomy Completed Immunization Name Dates Details Immunizations not documented Family History Name Dates Details Family history of malignant neoplasm of breast (V16.3, Z80.3) Status: Active Family history of hypertension (V17.49, Z82.49) Status: Active Name Dates Details Family history of cardiac disorder (V17.49, Z82.49) Status: Active Family history of malignant neoplasm of breast (V16.3, Z80.3) Status: Active Name Dates Details Family history of hypertension (V17.49, Z82.49) Status: Active Social History Name Dates Details - Status: Name Dates Details Never smoker Vital Signs Date Test Result Details [id number] BP Systolic 117 mm[Hg] Status: Comments: Location: LUE; Position: Sitting BP Diastolic 76 mm[Hg] Status: Comments: Location: LUE; Position: Sitting Height 62 in Status: Weight 169 lb Status: Body Mass Index Calculated 30.91 kg/m2 Status: Body Surface Area Calculated 1.78 m2 Status: Heart Rate 74 /min Status: [id number] BP Systolic 120 mm[Hg] Status: Comments: Location: LUE; Position: Sitting BP Diastolic 83 mm[Hg] Status: Comments: Location: LUE; Position: Sitting Height 62 in Status: Weight 166 lb Status: Body Mass Index Calculated 30.36 kg/m2 Status: Body Surface Area Calculated 1.77 m2 Status: Heart Rate 75 /min Status: Results Date Description Value Details [id number] . Comments: Department of Pathology & Laboratory Medicine For: MSB 2.008 [address] [place] [address] 0 Phone: [phone] Email: [email or web address] [address] [email or web address] LMP: - VPMTrichomonas~NegativeGardnerella~NegativeCandida~ NegativeThe Affirm VPIII Microbial Identification Te Affirm st for Jessica species (C. albicans, C.glabrata, C. kefyr, C. krusei , C. parapsilosis, C. tropicalis) can detect 1 x 10(4) CFUof Jessica species in log phase per assay, 2 x 10(5) CFU of G. vaginalis in VPIII log phase perassay and 5 x 10(3) , and trichomonads (T. vaginalis) per assay. A negative test resultdoes not exclude the possibility of vaginitis/ vaginosis. As in many clinical situations,diagnosis shou (BV ld not be based on the results of a single laboratory test. Results shouldbe interpreted in conjunction with other clinical and laboratory data available to theclinician such as pH, amine odor, clue raya Panel) ls and vaginal discharge characteristics.Simultaneous infections by more than one organism are common.Disclaimer:Testing is performed using FDA- approved Affirm TELEVISION CAMERAMAN III Microbial Identification system,i.e ., nucleic acid hybridization. The assay has been validated/verified by the [facility] of the [place] [facility] of Pathology & Laboratory Medicine. The performance of this test on p atient specimens collected during or immediately afterantimicrobial therapy is unknown. The presence or absence of Jessica species, G.vaginalis or T. vaginalis cannot be used as a test for therapeutic success or failure.Arlene Lubin MD, PhD Affirm VPIII (BV Panel) REPORT Plan of Care Name Dates Details Planned Observations Planned Goals not documented Interventions Provided Medication ChangesEstradiol 0.1 MG/GM Vaginal Cream - StartLabs/Procedures/ Imaging[[facility]] CULTURE, URINE, ROUTINE; To Be Done: 29 Jul 2018Planestrace vag cream pea size amt to area qd x2 weeks; UCx pending; try antihistamine. pt to stop lamotrigine and give it 2 weeks to see if itching improved. if not, f/u for possible vulvar biopsy; Instructions Name Dates Details Instructions not documented Encounters Appointment; DARIUSZ MENEZES M.D. On: 19-Apr-2017 16:15 Encounter Diagnosis: Problem not documented Appointment; GINA FLOYD M.D. On: 15-Jul-2018 14:00 Encounter Diagnosis: Problem not documented Appointment; GINA FLOYD M.D. On: 29-Jul-2018 11:15 Encounter Diagnosis: Problem not documented
[2018-07-30] MEDS ORDERED: ONDANSETRON 4 MG/2 ML VIAL ONE (10:11)
[2018-07-30] MEDS ORDERED: CEFTRIAXONE/SWI 1gm 1 GM/10 ML SYR ONE (10:11)
[2018-07-30] MEDS ORDERED: FENTANYL CITR 100 MCG/2 ML ONE (10:11)
[2018-07-30] MEDS ORDERED: NA CHLORIDE 0.9% 1,000 ML ONE (10:11)
[2018-07-30 10:24] LABS: Urine Blood NEGATIVE (NEG); Urine Glucose NEGATIVE (NEG); Urine Protein NEGATIVE (NEG); Urine pH 5.5 (5.0-7.0)
[2018-07-30 10:40] LABS: Absolute Lymphocytes (CBC) 1.8 K/uL (0.7-4.9); Absolute Monocytes 0.5 K/uL (0.1-1.3); Absolute Neutrophil 2.9 K/uL (1.8-8.0); Basophils % 0.6 % (0-1.3); Eosinophils % 2.9 % (0-4.4); Hematocrit 42.5 % (36.0-45.0); Lymphocytes % 33.8 % (15.3-44.8); MCH 29.8 pg (27.0-35.0); MCV 91.7 fL (80-100); MPV 8.9 fL (7.6-11.3); Monocytes % 8.3 % (3.3-12.3); RBC Red Blood Cell Count 4.64 M/uL (3.86-4.86)
[2018-07-30 10:48] LABS: ALT/SGPT 26 U/L (12-78); AST/SGOT 18 U/L (15-37); Albumin 3.6 g/dL (3.4-5.0); Alkaline Phosphatase 73 U/L (45-117); BUN Blood Urea Nitrogen 8 mg/dL (7-18); Bicarbonate 29 mmol/L (21-32); Bilirubin Direct < 0.1 mg/dL (0-0.2); Bilirubin Total 0.3 mg/dL (0.2-1.0); Glucose Level 90 mg/dL (74-106); Lipase 168 U/L (73-393); Potassium 3.6 mmol/L (3.5-5.1); Protein, Total 7.3 g/dL (6.4-8.2); Sodium Level 141 mmol/L (136-145)
--- NOTE | 2018-07-30 10:52 | RAD REPORT ---
EXAM DESCRIPTION: CT - Stone Protocol - 07/30/2018 10:23 am CLINICAL HISTORY: Flank pain. ABD PAIN COMPARISON: CT ABD PELVIS W CONTRAST dated 02/06/2009; CTANGIO AORTA FOR DISSECTION dated 07/23/2014 TECHNIQUE: Axial images were obtained without oral or IV contrast. Lack of contrast limits solid org an and vascular assessment. The [id number] spans the entirety of the system partially obscuring uppermost abdomen and lung bases. Coronal reformatted images were obtained and reviewed. All CT scans are performed using dose optimization technique as appropriate and may include automated exposure control or mA/KV adjustment according to patient size. FINDINGS: The lower lung somers are clear. Imaged portions of the liver and spleen show no suspicious findings on non-contrast imaging.Cholecyst ectomy clips. The pancreas and adrenal glands are normal. No urinary tract stones or obstructive uropathy. No bowel obstruction, free air, free fluid or abscess. Normal appendix noted.Small fat containing umb ilical hernia. Few mildly prominent lymph nodes are present in the small bowel mesentery. No significant bony abnormality. 2.8 cm left ovarian cyst. IMPRESSION: No urinary tract stones or obstructive uropathy. Normal appendix. Mildly prominent small bowel mesenteric lymph nodes seen.
--- NOTE | 2018-07-30 11:18 | EDPHYS ---
Physician Documentation [facility] Name: Corwin Nieto Age: 48 yrs Sex: Female : 1970 Arrival Date: 07/30/2018 Time: 09:15 Bed 13 Private MD: ED Physician Bony Burgos HPI: 07/30 09:56 This 48 yrs old Female presents to ER via Ambulatory with complaints of Back jesús Pain, Abdominal Pain, Pelvic Pain, Vaginal Itching. 09:56 The patient presents with pain bilateral flank pain, right greater than left. 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 - Social history:: Smoking status: Patient/guardian denies using tobacco. - Ebola Screening: : No symptoms or risks identified at this time. - Family history:: not pertinent. ROS: 09:56 Constitutional: Negative for fever, chills, and weight loss, Eyes: Negative for injury, jesús pain, redness, and discharge, ENT: Negative for injury, pain, and discharge, Neck: Negative for injury, pain, and swelling, Cardiovascular: Negative for chest pain, palpitations, and edema, Respiratory: Negative for shortness of breath, cough, wheezing, and pleuritic chest pain, MS/Extremity: Negative for injury and deformity, Skin: Negative for injury, rash, and discoloration, Neuro: Negative for headache, weakness, numbness, tingling, and seizure, Psych: Negative for depression, anxiety, suicide ideation, homicidal ideation, and hallucinations, Allergy/Immunology: Negative for hives, rash, and allergies, Endocrine: Negative for neck swelling, polydipsia, polyuria, polyphagia, and marked weight changes, Hematologic/Lymphatic: Negative for swollen nodes, abnormal bleeding, and unusual bruising. 09:56 Abdomen/GI: Positive for abdominal pain, nausea and vomiting. 09:56 Back: Positive for pain at rest, flank pain, bilaterally. Exam: 09:56 Constitutional: This is a well developed, well nourished patient who is awake, alert, jesús and in no acute distress. Head/Face: Normocephalic, atraumatic. Eyes: Pupils equal round and reactive to light, extra-ocular motions intact. Lids and lashes normal. Conjunctiva and sclera are non-icteric and not injected. Cornea within normal limits. Periorbital areas with no swelling, redness, or edema. ENT: Nares patent. No nasal discharge, no septal abnormalities noted. Tympanic membranes are normal and external auditory canals are clear. Oropharynx with no redness, swelling, or masses, exudates, or evidence of obstruction, uvula midline. Mucous membranes moist. Neck: Trachea midline, no thyromegaly or masses palpated, and no cervical lymphadenopathy. Supple, full range of motion without nuchal rigidity, or vertebral point tenderness. No Meningismus. Chest/axilla: Normal chest wall appearance and motion. Nontender with no deformity. No lesions are appreciated. Cardiovascular: Regular rate and rhythm with a normal S1 and S2. No gallops, murmurs, or rubs. Normal PMI, no JVD. No pulse deficits. Respiratory: Lungs have equal breath sounds bilaterally, clear to auscultation and percussion. No rales, rhonchi or wheezes noted. No increased work of breathing, no retractions or nasal flaring. Female : Normal external genitalia. Skin: Warm, dry with normal turgor. Normal color with no rashes, no lesions, and no evidence of cellulitis. MS/ Extremity: Pulses equal, no cyanosis. Neurovascular intact. Full, normal range of motion. Neuro: Awake and alert, GCS 15, oriented to person, place, time, and situation. Cranial nerves II-XII grossly intact. Motor strength 5/5 in all extremities. Sensory grossly intact. Cerebellar exam normal. Normal gait. Psych: Awake, alert, with orientation to person, place and time. Behavior, mood, and affect are within normal limits. 09:56 Abdomen/GI: Inspection: abdomen appears normal, Bowel sounds: normal, Palpation: mild abdominal tenderness, in the suprapubic area and right lower quadrant, Liver: no appreciated palpable abnormalities, Hernia: not appreciated. Vital Signs: 09:21 BP 110 / 81; Pulse 81; Resp 18 S; Temp 98.1(O); Pulse Ox 100% on R/A; Weight 77.11 kg jl7 (R); Height 5 ft. 2 in. (157.48 cm) (R); Pain 8/10; 10:55 BP 93 / 63; Pulse 77; Resp 17; Pulse Ox 98% on R/A; tw2 11:38 BP 97 / 67; Pulse 70; Resp 17; Pulse Ox 99% on R/A; tw2 09:21 Body Mass Index 31.09 (77.11 kg, 157.48 cm) jl7 MDM: 09:23 Patient medically screened. [facility] 10:01 Data reviewed: vital signs, nurses notes, lab test result(s), radiologic studies, CT jesús scan. 07/30 09:51 Order name: Urine Dipstick--Ancillary (enter results); Complete Time: 11:16 bd 07/30 09:51 Order name: Urine --Ancillary (enter results); Complete Time: 11:16 bd 07/30 09:55 Order name: Basic Metabolic Panel; Complete Time: 11:16 jesús 07/30 09:55 Order name: CBC with Diff; Complete Time: 11:16 jesús 07/30 09:55 Order name: Creatinine for Radiology; Complete Time: 11:16 jesús 07/30 09:55 Order name: Hepatic Function; Complete Time: 11:16 jesús 07/30 09:45 Order name: Urine Dipstick-Ancillary (obtain specimen); Complete Time: 09:45 tw2 07/30 09:55 Order name: Lipase; Complete Time: 11:16 jesús 07/30 09:56 Order name: CT Stone Protocol; Complete Time: 11:16 jesús 07/30 09:45 Order name: Urine Test (obtain specimen); Complete Time: 09:45 tw2 07/30 09:55 Order name: IV Saline Lock; Complete Time: 10:19 jesús 07/30 09:55 Order name: Labs collected and sent; Complete Time: 10:19 [facility] Administered Medications: 10:15 Drug: fentaNYL (PF) 25 mcg Route: IVP; Site: left antecubital; tw2 11:00 Follow up: Response: No adverse reaction; Pain is decreased tw2 10:15 Drug: Zofran 4 mg Route: IVP; Site: left antecubital; tw2 11:33 Follow up: Response: No adverse reaction tw2 10:17 Drug: NS 0.9% 1000 ml Route: IV; Rate: 1 bolus; Site: left antecubital; tw2 11:30 Follow up: Response: No adverse reaction; IV Status: Completed infusion; IV Intake: tw2 1000ml 10:17 Drug: Rocephin - (cefTRIAXone) 1 grams {Note: IVP available only, provider aware..} tw2 Route: IVPB; Infused Over: 5 mins; Site: left antecubital; 10:22 Follow up: Response: No adverse reaction; IV Status: Completed infusion tw2 10:22 Follow up: Response: No adverse reaction tw2 11:34 Not Given (Duplicate Order): fentaNYL (PF) 25 mcg IVP once tw2 Disposition: 07/30/18 11:17 Discharged to Home. Impression: Cystitis, Nonspecific mesenteric lymphadenitis. - Condition is Stable. - Discharge Instructions: Dysuria, Mesenteric Adenitis, Pediatric, Urinary Tract Infection, Adult. - Prescriptions for Pyridium 200 mg Oral Tablet - take 1 tablet by ORAL route every 8 hours for 3 days; 9 tablet. Tramadol 50 mg Oral Tablet - take 1 tablet by ORAL route every 8 hours as needed; 26 tablet. Bactrim DS 800- 160 mg Oral Tablet - take 1 tablet by ORAL route every 12 hours for 7 days; 14 tablet. - Medication Reconciliation Form, Thank You Letter, Antibiotic Education, Prescription Opioid Use, Work release form form. - Follow up: Private Physician; When: 2 - 3 days; Reason: Recheck today's complaints, Continuance of care, Re-evaluation by your physician. - Problem is new. - Symptoms have improved. Signatures: Dispatcher [employer] Bony Perez MD MD cha Wise, Tara, RN RN tw2 Lorenzo Gonsalves RN RN jl7 Corrections: (The following items were deleted from the chart) 09:28 09:28 Allergies: Morphine; tw2 tw2 11:39 11:17 07/30/2018 11:17 Discharged to Home. Impression: Cystitis; Nonspecific mesenteric tw2 lymphadenitis. Condition is Stable. Discharge Instructions: Dysuria, Urinary Tract Infection, Adult. Prescriptions for Pyridium 200 mg Oral Tablet - take 1 tablet by ORAL route every 8 hours for 3 days; 9 tablet, Tramadol 50 mg Oral Tablet - take 1 tablet by ORAL route every 8 hours as needed; 26 tablet, Bactrim DS 800-160 mg Oral Tablet - take 1 tablet by ORAL route every 12 hours for 7 days; 14 tablet. and Forms are Work release form, Medication Reconciliation Form, Thank You Letter, Antibiotic Education, Prescription Opioid Use. Follow up: Private Physician; When: 2 - 3 days; Reason: Recheck today's complaints, Continuance of care, Re-evaluation by your physician. Problem is new. Symptoms have improved. jesús
--- NOTE | 2018-07-30 11:18 | ER ---
Nurse's Notes [facility] Name: Corwin Nieto Age: 48 yrs Sex: Female : 1970 Arrival Date: 07/30/2018 Time: 09:15 Bed 13 Private MD: Diagnosis: Cystitis;Nonspecific mesenteric lymphadenitis Presentation: 07/30 09:17 Presenting complaint: Patient states: Saw Dr. Scott in [place] for Vaginal itching and jl7 throbbing for the past month, took Diflucan twice and it hasn't helped at all. They did a urine yesterday and there was blood in it and then last night my Right lower back and pelvic area started hurting. Transition of care: patient was not received from another setting of care. Onset of symptoms was July 30, 2018. Risk Assessment: Do you want to hurt yourself or someone else? Patient reports no desire to harm self or others. Initial Sepsis Screen: Does the patient meet any 2 criteria? No. Patient's initial sepsis screen is negative. Does the patient have a suspected source of infection? No. Patient's initial sepsis screen is negative. Care prior to arrival: None. 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 - Social history:: Smoking status: Patient/guardian denies using tobacco. - Ebola Screening: : No symptoms or risks identified at this time. - Family history:: not pertinent. Screenin:25 Abuse screen: Denies threats or abuse. Nutritional screening: No deficits noted. tw2 Tuberculosis screening: No symptoms or risk factors identified. Fall Risk None identified. Assessment: 09:48 General: Appears in no apparent distress. Behavior is calm, cooperative, appropriate tw2 for age. Pain: Complains of pain in pelvis. Neuro: Level of Consciousness is awake, alert, obeys commands, Oriented to person, place, time, situation. Cardiovascular: Denies chest pain, shortness of breath, Heart tones S1 S2 Capillary refill < 3 seconds Patient's skin is warm and dry. Respiratory: Airway is compromised Respiratory effort is even, unlabored, Respiratory pattern is regular, symmetrical, Breath sounds are clear bilaterally. GI: No signs and/or symptoms were reported involving the gastrointestinal system. : Reports vaginal itching, "i feel like everything is going to fall out, i was woke up at 3 this morning with pelvis pain". EENT: No signs and/or symptoms were reported regarding the EENT system. Derm: No signs and/or symptoms reported regarding the dermatologic system. Musculoskeletal: Range of motion: intact in all extremities. 10:56 Reassessment: Patient appears in no apparent distress at this time. No changes from tw2 previously documented assessment. Patient and/or family updated on plan of care and expected duration. Pain level reassessed. Patient is alert, oriented x 3, equal unlabored respirations, skin warm/dry/pink. 11:39 Reassessment: Patient appears in no apparent distress at this time. No changes from tw2 previously documented assessment. Patient and/or family updated on plan of care and expected duration. Pain level reassessed. Patient is alert, oriented x 3, equal unlabored respirations, skin warm/dry/pink. Vital Signs: 09:21 BP 110 / 81; Pulse 81; Resp 18 S; Temp 98.1(O); Pulse Ox 100% on R/A; Weight 77.11 kg 7 (R); Height 5 ft. 2 in. (157.48 cm) (R); Pain 8/10; 10:55 BP 93 / 63; Pulse 77; Resp 17; Pulse Ox 98% on R/A; tw2 11:38 BP 97 / 67; Pulse 70; Resp 17; Pulse Ox 99% on R/A; tw2 09:21 Body Mass Index 31.09 (77.11 kg, 157.48 cm) jl7 ED Course: 09:15 Patient arrived in ED. as 09:19 Triage completed. jl7 09:21 Arm band placed on right wrist. Patient placed in an exam room, on a stretcher. jl7 09:23 Mera Cifuentes RN is Primary Nurse. tw2 09:23 Bony Burgos MD is Attending Physician. [facility] 09:25 Bed in low position. Call light in reach. Pulse ox on. NIBP on. tw2 09:30 Urine collected: clean catch specimen, clear. mh5 10:10 Inserted saline lock: 22 gauge in left antecubital area, using aseptic technique. Blood tw2 collected. Missed attempt(s): 20 gauge in left antecubital area. Bleeding controlled, band aid applied, catheter tip intact. 10:21 CT completed. Patient tolerated procedure well. Patient moved to CT via wheelchair. jg6 Patient moved back from CT. 10:23 CT Stone Protocol In Process Unspecified. EDMS 11:22 Awaiting: completion of discharge paperwork at this time. tw2 11:38 No provider procedures requiring assistance completed. IV discontinued, intact, tw2 bleeding controlled, No redness/swelling at site. Pressure dressing applied. Administered Medications: 10:15 Drug: fentaNYL (PF) 25 mcg Route: IVP; Site: left antecubital; tw2 11:00 Follow up: Response: No adverse reaction; Pain is decreased tw2 10:15 Drug: Zofran 4 mg Route: IVP; Site: left antecubital; tw2 11:33 Follow up: Response: No adverse reaction tw2 10:17 Drug: NS 0.9% 1000 ml Route: IV; Rate: 1 bolus; Site: left antecubital; tw2 11:30 Follow up: Response: No adverse reaction; IV Status: Completed infusion; IV Intake: tw2 1000ml 10:17 Drug: Rocephin - (cefTRIAXone) 1 grams {Note: IVP available only, provider aware..} tw2 Route: IVPB; Infused Over: 5 mins; Site: left antecubital; 10:22 Follow up: Response: No adverse reaction; IV Status: Completed infusion tw2 10:22 Follow up: Response: No adverse reaction tw2 11:34 Not Given (Duplicate Order): fentaNYL (PF) 25 mcg IVP once tw2 Outcome: 11:17 Discharge ordered by . [facility] 11:39 Discharged to home ambulatory. tw2 11:39 Condition: stable 11:39 Discharge instructions given to patient, Instructed on discharge instructions, follow up and referral plans. no drinking with medication, no driving heavy equipment, medication usage, Demonstrated understanding of instructions, follow-up care, medications, Prescriptions given X 3. 11:39 Patient left the ED. tw2 Signatures: Dispatcher [employer] EDBony Augustin MD MD cha Martinez, Amelia as Wise, Tara, RN RN tw2 Naz Bedoya [facility] Lorenzo Gonsalves RN RN jl7 Kisha Johnson6 Corrections: (The following items were deleted from the chart) 09:28 09:28 Allergies: Morphine; tw2 tw2
== END 2018-07-30 11:39 | disposition home or self-care (01) ==
LOC: ER 09:12
DX: N30.90 Cystitis, unspecified without hematuria (principal); I88.0 Nonspecific mesenteric lymphadenitis; F32.9 Major depressive disorder, single episode, unspecified; Z88.1 Allergy status to other antibiotic agents; Z88.5 Allergy status to narcotic agent
CPT/HCPCS: 36415; 74176; 76377; 80048; 80076; 81003; 81025; 83690; 85025; J0696; J2405; J3010; J7030; 96361; 96374; 96375; 99284

== ENCOUNTER 2019-10-03 11:45 | Emergency (ER) | payer OTHER ==
[2019-10-03] MEDS ORDERED: ACETAMINOPHEN 500 MG TAB ONE (12:17)
--- NOTE | 2019-10-03 13:19 | RAD REPORT ---
EXAM DESCRIPTION: RAD - Chest Pa And Lat (2 Views) - 10/03/2019 1:03 pm CLINICAL HISTORY: Cough;Fever COMPARISON: Chest Single View dated 07/05/2017 TECHNIQUE: Frontal and lateral views of the chest were obtained. FINDINGS: The lungs are clear. Heart size is normal and central vasculature is within normal limit s. No pleural effusion or pneumothorax seen. No acute bony finding noted. No aortic abnormality. IMPRESSION: No acute cardiopulmonary process. No significant interval change.
--- NOTE | 2019-10-03 13:22 | ER ---
Nurse's Notes [facility] Name: Corwin Nieto Age: 49 yrs Sex: Female : 1970 Arrival Date: 10/03/2019 Time: 11:49 Bed 13 Private MD: Diagnosis: Cough;Rash and other nonspecific skin eruption;Fever, unspecified Presentation: 10/03 11:52 Presenting complaint: Patient states: "My throat is really scratchy, and I've had a dry ss cough, but when I wake up in the morning, it's thick and yellow. I have a lot of congestion, but today is the only day I felt as if I was running a fever." Pt also reports that she has been giving her self Emgality injections for the past 3 months, but noticed this time she has a red, itchy spot on her R upper thigh at the injection site x 2 days. Transition of care: patient was not received from another setting of care. Resp Distress? No respiratory distress is noted at this time. Onset of symptoms was September 30, 2020. Risk Assessment: Do you want to hurt yourself or someone else? Patient reports no desire to harm self or others. Initial Sepsis Screen: Does the patient meet any 2 criteria? No. Patient's initial sepsis screen is negative. Does the patient have a suspected source of infection? No. Patient's initial sepsis screen is negative. Care prior to arrival: None. 11:52 Method Of Arrival: Ambulatory 11:52 Acuity: ALEXANDRA 3 ss Triage Assessment: 12:19 Respiratory: Breath sounds are clear bilaterally. in mediastinum, right upper lobe, mg2 left upper lobe, right middle lobe, left lower lobe and right lower lobe. 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 - Social history:: Smoking status: Patient/guardian denies using tobacco. - Ebola Screening: : Patient denies exposure to infectious person Patient denies travel to an Ebola-affected area in the 21 days before illness onset. Screenin:03 Abuse screen: Denies threats or abuse. Denies injuries from another. Nutritional mg2 screening: No deficits noted. Tuberculosis screening: No symptoms or risk factors identified. Fall Risk None identified. Assessment: 12:02 General: Appears in no apparent distress. comfortable, Behavior is calm, cooperative. mg2 Pain: Complains of pain in chest Pain does not radiate. Pain currently is 6 out of 10 on a pain scale. Quality of pain is described as aching, Pain began gradually, 2-3 days ago. Is intermittent. Neuro: Level of Consciousness is awake, alert, obeys commands, Oriented to person, place, time, situation. Cardiovascular: Capillary refill < 3 seconds Patient's skin is warm and dry. Respiratory: Airway is patent Respiratory effort is even, unlabored, Respiratory pattern is regular, symmetrical. Respiratory: Reports cough that is. GI: No signs and/or symptoms were reported involving the gastrointestinal system. : No signs and/or symptoms were reported regarding the genitourinary system. EENT: Reports nasal congestion. Derm: Skin is intact, is healthy with good turgor, Skin is pink, warm \\T\\ dry. normal. Musculoskeletal: Circulation, motion, and sensation intact. Capillary refill < 3 seconds. Vital Signs: 11:57 BP 129 / 90; Pulse 100; Resp 16; Temp 99.6(TE); Pulse Ox 100% on R/A; Weight 82.55 kg; Height 5 ft. 2 in. (157.48 cm); Pain 6/10; 13:30 BP 133 / 78; Pulse 90; Resp 18; Temp 99; Pulse Ox 100% on R/A; mg2 11:57 Body Mass Index 33.29 (82.55 kg, 157.48 cm) ED Course: 11:49 Patient arrived in ED. mr 11:56 Triage completed. 11:57 Edgardo Jean FNP-C is [facility]. la1 11:57 Nikolay Aranda MD is Attending Physician. la1 11:57 Arm band placed on right wrist. ss 12:02 Ramin Castrejon, RN is Primary Nurse. mg2 12:03 Patient has correct armband on for positive identification. mg2 12:03 No provider procedures requiring assistance completed. mg2 12:19 Flu and/or RSV swab sent to lab. Patient did not have IV access during this emergency mg2 room visit. 13:04 Chest Pa And Lat (2 Views) XRAY In Process Unspecified. EDMS Administered Medications: 12:16 Drug: Tylenol 1000 mg Route: PO; mg2 13:26 Follow up: Response: No adverse reaction mg2 Outcome: 13:21 Discharge ordered by MD. la1 13:35 Discharged to home ambulatory. mg2 13:35 Condition: good 13:35 Discharge instructions given to patient, Instructed on discharge instructions, follow up and referral plans. medication usage, Demonstrated understanding of instructions, follow-up care, medications, Prescriptions given X 1. 13:37 Patient left the ED. mg2 Signatures: Dispatcher [employer] EDPA Candice Zaragoza Shelby, RN RN Edgardo Jean, SUPERVISOR CUSTOMER COMPLAINT SERVICE-C SUPERVISOR CUSTOMER COMPLAINT SERVICE-Cla1 Ramin Castrejon, RN RN mg2
--- NOTE | 2019-10-03 13:23 | EDPHYS ---
Physician Documentation [facility] Name: Corwin Nieto Age: 49 yrs Sex: Female : 1970 Arrival Date: 10/03/2019 Time: 11:49 Bed 13 Private MD: ED Physician Nikolay Aranda HPI: 10/03 12:15 This 49 yrs old Female presents to ER via Ambulatory with complaints of la1 Cough, Congestion, Fever, Leg Swelling. 12:15 The patient or guardian reports cough, flu symptoms, low-grade fever. Onset: The la1 symptoms/episode began/occurred yesterday. Severity of symptoms: At their worst the symptoms were mild. Modifying factors: The symptoms are alleviated by nothing, the symptoms are aggravated by nothing. Associated signs and symptoms: Pertinent positives: sore throat. The patient has not experienced similar symptoms in the past. Pt reports cough for the last few days, began feeling like she was running fever this morning. . 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 - Social history:: Smoking status: Patient/guardian denies using tobacco. - Ebola Screening: : Patient denies exposure to infectious person Patient denies travel to an Ebola-affected area in the 21 days before illness onset. ROS: 12:15 Eyes: Negative for injury, pain, redness, and discharge, ENT: Negative for injury, la1 pain, and discharge, Neck: Negative for injury, pain, and swelling, Cardiovascular: Negative for chest pain, palpitations, and edema. 12:15 Abdomen/GI: Negative for abdominal pain, nausea, vomiting, diarrhea, and constipation, Back: Negative for injury and pain, MS/Extremity: Negative for injury and deformity, Skin: Negative for injury, rash, and discoloration, Neuro: Negative for headache, weakness, numbness, tingling, and seizure. 12:15 Constitutional: Positive for chills, fever, malaise. 12:15 Respiratory: Positive for cough, pleurisy, of the left lateral posterior chest and left lateral anterior chest. 12:16 MS/extremity: Positive for pain, of the lateral aspect of right thigh. la1 Exam: 12:16 Constitutional: This is a well developed, well nourished patient who is awake, alert, la1 and in no acute distress. Head/Face: Normocephalic, atraumatic. Eyes: Pupils equal round and reactive to light, extra-ocular motions intact. Periorbital areas with no swelling, redness, or edema. ENT: Nares patent. No nasal discharge, no septal abnormalities noted. Tympanic membranes are normal and external auditory canals are clear. Oropharynx with no redness, swelling, or masses, exudates, or evidence of obstruction, uvula midline. Mucous membranes moist. Neck: . No Meningismus. Chest/axilla: Normal chest wall appearance and motion. Nontender with no deformity. No lesions are appreciated. Cardiovascular: Regular rate and rhythm with a normal S1 and S2. No gallops, murmurs, or rubs. Normal PMI, no JVD. No pulse deficits. Respiratory: Lungs have equal breath sounds bilaterally, clear to auscultation No rales, rhonchi or wheezes noted. No increased work of breathing, no retractions or nasal flaring. Back: No spinal tenderness. No costovertebral tenderness. Full range of motion. MS/ Extremity: Pulses equal, no cyanosis. Neurovascular intact. Full, normal range of motion. Neuro: Awake and alert, GCS 15, oriented to person, place, time, and situation. . Normal gait. 12:16 Skin: rash a mild rash is noted, rash can be described as erythematous, on the lateral aspect of right thigh, painful to palpation. Vital Signs: 11:57 BP 129 / 90; Pulse 100; Resp 16; Temp 99.6(TE); Pulse Ox 100% on R/A; Weight 82.55 kg; ss Height 5 ft. 2 in. (157.48 cm); Pain 6/10; 13:30 BP 133 / 78; Pulse 90; Resp 18; Temp 99; Pulse Ox 100% on R/A; mg2 11:57 Body Mass Index 33.29 (82.55 kg, 157.48 cm) ss MDM: 11:59 Patient medically screened. la1 13:19 Data reviewed: vital signs, nurses notes, lab test result(s), radiologic studies, and la1 as a result, I will discharge patient. Data interpreted: Pulse oximetry: on room air is 100 %. Test interpretation: by ED physician or midlevel provider: plain radiologic studies. Counseling: I had a detailed discussion with the patient and/or guardian regarding: the historical points, exam findings, and any diagnostic results supporting the discharge/admit diagnosis, the presence of at least one elevated blood pressure reading (>120/80) during this emergency department visit, lab results, radiology results, the need for outpatient follow up, a family practitioner, to return to the emergency department if symptoms worsen or persist or if there are any questions or concerns that arise at home. Special discussion: Based on the patient's history, exam, and Dx evaluation, there is no indication for emergent intervention or inpatient Tx. It is understood by the patient/guardian that if the Sx's persist or worsen they need to return immediately for re-evaluation. Based on the history and exam findings, there is no indication for further emergent testing or inpatient evaluation. I discussed with the patient/guardian the need to see the primary care provider for further evaluation of the symptoms. 10/03 12:14 Order name: Flu; Complete Time: 13:31 la1 10/03 12:14 Order name: Chest Pa And Lat (2 Views) XRAY; Complete Time: 13:31 la1 Administered Medications: 12:16 Drug: Tylenol 1000 mg Route: PO; mg2 13:26 Follow up: Response: No adverse reaction mg2 Disposition: 10/03/19 13:21 Discharged to Home. Impression: Cough, Rash and other nonspecific skin eruption, Fever, unspecified. - Condition is Stable. - Discharge Instructions: Cellulitis, Adult, Upper Respiratory Infection, Adult, Allergies, [id number]. - Prescriptions for Doxycycline Hyclate 100 mg Oral Tablet - take 1 tablet by ORAL route every 12 hours for 7 days; 14 tablet. - Medication Reconciliation Form, Thank You Letter, Antibiotic Education, Work release form form. - Follow up: Private Physician; When: 2 - 3 days; Reason: Recheck today's complaints, Re-evaluation by your physician. Follow up: Emergency Department; When: As needed. - Problem is new. - Symptoms are unchanged. Addendum: 10/06/2019 06:38 Co-signature as Attending Physician, Nikolay Aranda MD I agree with the assessment and k dr plan of care. Signatures: Dispatcher [employer] EDNY Nikolay Aranda MD MD [facility] Frances Fontenot, RN RN ss Edgardo Jean, EXECUTIVE DIRECTOR-C EXECUTIVE DIRECTOR-Cla1 Ramin Castrejon, RN RN mg2 Corrections: (The following items were deleted from the chart) 10/03 13:37 13:21 10/03/2019 13:21 Discharged to Home. Impression: Cough; Rash and other mg2 nonspecific skin eruption; Fever, unspecified. Condition is Stable. Forms are Medication Reconciliation Form, Thank You Letter, Antibiotic Education, Prescription Opioid Use. Follow up: Private Physician; When: 2 - 3 days; Reason: Recheck today's complaints, Re-evaluation by your physician. Follow up: Emergency Department; When: As needed. Problem is new. Symptoms are unchanged. la1
[2019-10-03 13:43] VITALS: O2SAT 100
[2019-10-03 13:45] VITALS: BP 133/78; TEMP 99
== END 2019-10-03 13:37 | disposition home or self-care (01) ==
LOC: ER 11:45
DX: R05 Cough (principal); R21 Rash and other nonspecific skin eruption; F32.9 Major depressive disorder, single episode, unspecified; Z88.1 Allergy status to other antibiotic agents; Z88.5 Allergy status to narcotic agent; Z88.8 Allergy status to other drugs, medicaments and biological substances
CPT/HCPCS: 71046; 87804; 99284

== ENCOUNTER 2019-11-20 18:16 | Emergency (ER) | payer OTHER ==
[2019-11-20] MEDS ORDERED: METOCLOPRAMIDE 10 MG/2mL INJ ONE (18:52)
[2019-11-20] MEDS ORDERED: DIPHENHYDRAMINE 50 MG/ML VIAL ONE (18:52)
[2019-11-20 19:08] LABS: Basophils % 0.9 % (0-1.3); Hematocrit 43.2 % (36.0-45.0); Lymphocytes % 36.5 % (15.3-44.8); RBC Red Blood Cell Count 4.81 M/uL (3.86-4.86)
[2019-11-20 19:16] LABS: Protime INR 0.91
--- NOTE | 2019-11-20 19:19 | RAD REPORT ---
EXAM DESCRIPTION: RAD - Chest Single View - 11/20/2019 7:07 pm CLINICAL HISTORY: CHEST PAIN Chest pain. COMPARISON: Chest Pa And Lat (2 Views) dated 10/03/2019; Chest Single View dated 07/05/2017; CHEST SING LE VIEW dated 07/24/2014; CHEST SINGLE VIEW dated 03/16/2011 FINDINGS: Portable technique limits examination quality. The lungs are grossly clear. The heart is normal in size. No displaced fractures. IMPRESSION: No acute intrathoracic process suspected.
[2019-11-20 19:29] LABS: ALT/SGPT 29 U/L (12-78); AST/SGOT 16 U/L (15-37); Albumin 4.2 g/dL (3.4-5.0); Alkaline Phosphatase 91 U/L (45-117); BUN Blood Urea Nitrogen 9 mg/dL (7-18); Bicarbonate 27 mmol/L (21-32); Bilirubin Direct 0.1 mg/dL (0-0.2); Bilirubin Total 0.4 mg/dL (0.2-1.0); Glucose Level 111 mg/dL (74-106); Magnesium 2.5 mg/dL (1.8-2.4); NT PRO-BNP 40 pg/mL (<125); Potassium 3.7 mmol/L (3.5-5.1); Protein, Total 8.2 g/dL (6.4-8.2); Sodium Level 139 mmol/L (136-145); Troponin (Emerg Dept Use Only) < 0.02 ng/mL (0.0-0.045)
[2019-11-20] MEDS ORDERED: FENTANYL CITR 100 MCG/2 ML ONE (19:49)
--- NOTE | 2019-11-20 20:06 | RAD REPORT ---
EXAM DESCRIPTION: CT - Angio Aorta For Dissection - 11/20/2019 7:54 pm CLINICAL HISTORY: Chest pain radiating to the back. SOB;Chest pain COMPARISON: CTANGIO AORTA FOR DISSECTION dated 07/23/2014; CTANGIO AORTA FOR DISSECTION dated 010; Stone Protocol dated 07/30/2018 TECHNIQUE: CT angiography of the aorta was performed with MIPs. All CT scans are performed using dose optimization technique as appropriate and may include automated exposure control or mA/KV adjustment according to patient size. FINDINGS: A left aortic arch is present with normal branching pattern of the great vessels.The root of the aorta measures 4 cm in transverse dimension, unchanged since 2014 comparative study.No acute a ortic finding is seen such as aneurysm, penetrating ulcer or dissection. The celiac axis, SMA, TALITA a nd renal arteries are patent. No evidence of pulmonary embolism. The lungs are clear. Mild fatty liver is seen. 11 mm enhancing lesion lateral aspect of the right lobe of the liver, mildl y increased in size since 2014 at which time measured 8 mm.Slow interval growth and early enhancement suggest benign etiology such as small flash filling hemangioma.The spleen, pancreas, adrenal glands and kidneys are within normal limits for arterial phase imaging.Cholecystectomy. No bowel obstruction, free fluid or abscess.No pathologic enlarged lymphadenopathy identified. No fracture or worrisome bone lesion seen. IMPRESSION: No acute aortic finding is demonstrated. The root of the aorta remain stable in size since comparative 2014 examination measuring 4 cm in meyers sverse dimension.
[2019-11-20] MEDS ORDERED: PANTOPRAZOLE 40 MG INJ ONE (20:30)
[2019-11-20] MEDS ORDERED: dexAMETHasone 4 MG/ML VIAL ONE (20:36)
--- NOTE | 2019-11-20 20:45 | EDPHYS ---
Physician Documentation [facility] Name: Corwin Nieto Age: 49 yrs Sex: Female : 1970 Arrival Date: 11/20/2019 Time: 18:18 Bed 2 Private MD: ED Physician Nikolay Aranda HPI: 11/20 19:22 This 49 yrs old Female presents to ER via Ambulatory with complaints of jr8 Headache, Nausea. 19:22 Onset: The symptoms/episode began/occurred acutely, today. Associated signs and jr8 symptoms: Pertinent positives: Chest pain. Severity of symptoms: At its worst the pain was moderate, in the emergency department the pain is unchanged. Headache History: The patient has had previous headaches and this one is similar to previous episodes, and this one is more severe than previous episodes. The patient has not experienced similar symptoms in the past. The patient has not recently seen a physician. Stated that she has history of migraines. Was recently diagnosed with bilateral otitis media and bronchitis. On Augmentin currently. Started to have migraine today with vomiting. Now having burning chest pain radiating straight to her back. History of ascending thoracic aortic aneurysm that has not been evaluated in some time . 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 - Coronavirus screen:: The patient has NOT traveled to [place] in the past 14 days. - Social history:: Smoking status: . - Ebola Screening: : Patient denies travel to an Ebola-affected area in the 21 days before illness onset. ROS: 19:22 Eyes: Negative for injury, pain, redness, and discharge, ENT: Negative for injury, jr8 pain, and discharge, Neck: Negative for injury, pain, and swelling, Respiratory: Negative for shortness of breath, cough, wheezing, and pleuritic chest pain, Back: Negative for injury and pain, MS/Extremity: Negative for injury and deformity, Skin: Negative for injury, rash, and discoloration. 19:22 Cardiovascular: Positive for chest pain, Negative for edema, orthopnea, palpitations, paroxysmal nocturnal dyspnea. 19:22 Abdomen/GI: Positive for nausea and vomiting, Negative for abdominal pain, diarrhea, constipation, abdominal cramps, abdominal distension. 19:22 Neuro: Positive for headache, Negative for altered mental status, dizziness, loss of consciousness, numbness, seizure activity, speech changes, syncope, near syncope, tingling, tinnitus, tremor, visual changes, weakness. Exam: 19:22 Eyes: Pupils equal round and reactive to light, extra-ocular motions intact. Lids and jr8 lashes normal. Conjunctiva and sclera are non-icteric and not injected. Cornea within normal limits. Periorbital areas with no swelling, redness, or edema. ENT: Nares patent. No nasal discharge, no septal abnormalities noted. Tympanic membranes are normal and external auditory canals are clear. Oropharynx with no redness, swelling, or masses, exudates, or evidence of obstruction, uvula midline. Mucous membranes moist. Neck: Trachea midline, no thyromegaly or masses palpated, and no cervical lymphadenopathy. Supple, full range of motion without nuchal rigidity, or vertebral point tenderness. No Meningismus. Cardiovascular: Regular rate and rhythm with a normal S1 and S2. No gallops, murmurs, or rubs. Normal PMI, no JVD. No pulse deficits. Respiratory: Lungs have equal breath sounds bilaterally, clear to auscultation and percussion. No rales, rhonchi or wheezes noted. No increased work of breathing, no retractions or nasal flaring. Abdomen/GI: Soft, non-tender, with normal bowel sounds. No distension or tympany. No guarding or rebound. No evidence of tenderness throughout. Back: No spinal tenderness. No costovertebral tenderness. Full range of motion. Skin: Warm, dry with normal turgor. Normal color with no rashes, no lesions, and no evidence of cellulitis. MS/ Extremity: Pulses equal bilaterally in the radial regions, PT, and DP regions without cyanosis. Neurovascular intact. Full, normal range of motion. Neuro: Awake and alert, GCS 15, oriented to person, place, time, and situation. Cranial nerves II-XII grossly intact. Motor strength 5/5 in all extremities. Sensory grossly intact. Cerebellar exam normal. Normal gait. Vital Signs: 18:32 BP 126 / 97; Pulse 84; Resp 17; Temp 97.8(TE); Pulse Ox 100% on R/A; Weight 83.46 kg tw2 (R); Pain 10/10; 18:45 BP 156 / 95; Pulse 90 RA; em 18:48 BP 136 / 88; Pulse 87 LA; em 19:30 BP 132 / 90; Pulse 74; Resp 16 S; Pulse Ox 100% on R/A; Pain 8/10; jd3 20:45 Pain 3/10; jd3 20:59 BP 111 / 82; Pulse 75; Resp 17 S; Pulse Ox 99% on R/A; Pain 3/10; jd3 21:01 BP 111 / 75; Pulse 71; Resp 16 S; Temp 98.6(TE); Pulse Ox 99% on R/A; Pain 1/10; bb MDM: 18:38 Patient medically screened. jr8 20:27 Data reviewed: vital signs, nurses notes, lab test result(s), EKG, radiologic studies, [facility] CT scan, plain films. Data interpreted: Pulse oximetry: on room air is 100 %. Interpretation: normal. Counseling: I had a detailed discussion with the patient and/or guardian regarding: the historical points, exam findings, and any diagnostic results supporting the discharge/admit diagnosis, lab results, radiology results, the need for outpatient follow up, a family practitioner, to return to the emergency department if symptoms worsen or persist or if there are any questions or concerns that arise at home. Response to treatment: the patient's symptoms have markedly improved after treatment, patient is well hydrated. ED course: Patient feeling much better. No acute findings on labs, ecg, or imaging. Discussed with patient most likely migraine and esophagitis secondary to vomiting from migraine. Recommend f/u with PCP in next couple of days. Patient good with this and will f/u . 11/20 18:45 Order name: Basic Metabolic Panel; Complete Time: 19:30 jr11/20 18:45 Order name: CBC with Diff; Complete Time: 19:22 11/20 18:45 Order name: LFT's; Complete Time: 19:30 11/20 18:45 Order name: Magnesium; Complete Time: 19:30 11/20 18:45 Order name: NT PRO-BNP; Complete Time: 19:30 11/20 18:45 Order name: PT-INR; Complete Time: 19:30 11/20 18:45 Order name: Troponin (emerg Dept Use Only); Complete Time: 19:30 11/20 18:45 Order name: XRAY Chest (1 view); Complete Time: 19:51 11/20 19:34 Order name: CT Aorta for Dissection; Complete Time: 20:19 11/20 18:45 Order name: EKG; Complete Time: 18:46 11/20 18:45 Order name: Cardiac monitoring; Complete Time: 19:19 11/20 18:45 Order name: EKG - Nurse/Tech; Complete Time: 19:19 11/20 18:45 Order name: IV Saline Lock; Complete Time: 19:19 11/20 18:45 Order name: Labs collected and sent; Complete Time: 19:19 11/20 18:45 Order name: O2 Per Protocol; Complete Time: 19:11/20 18:45 Order name: O2 Sat Monitoring; Complete Time: 18:59 8 Administered Medications: 18:50 Drug: Reglan 10 mg Route: IVP; Site: right antecubital; em 19:50 Follow up: Response: No adverse reaction jd3 18:55 Drug: Benadryl 25 mg Route: IVP; Site: right antecubital; em 19:50 Follow up: Response: No adverse reaction jd3 21:02 Follow up: Response: No adverse reaction bb 20:04 Drug: fentaNYL (PF) 50 mcg Route: IVP; Site: right antecubital; jd3 20:45 Follow up: Pain 3/10 Adult; Response: No adverse reaction; Pain is decreased jd3 20:42 Drug: ProTONIX 40 mg Route: IVP; Site: right antecubital; jd3 21:02 Follow up: Response: No adverse reaction bb 20:42 Drug: Decadron - Dexamethasone 10 mg Route: IVP; Site: right antecubital; jd3 21:02 Follow up: Response: No adverse reaction bb Disposition: 11/21 07:02 Co-signature as Attending Physician, Nikolay Aranda MD I agree with the assessment and kdr plan of care. Disposition: 11/20/19 20:44 Discharged to Home. Impression: Migraine, Vomiting, Chest pain, unspecified. - Condition is Stable. - Discharge Instructions: Nonspecific Chest Pain, Migraine Headache, Nausea and Vomiting, Adult. - Prescriptions for Zofran 4 mg Oral Tablet - take 1 tablet by ORAL route every 12 hours As needed; 20 tablet. - Medication Reconciliation Form, Thank You Letter, Antibiotic Education, Prescription Opioid Use form. - Follow up: Private Physician; When: 2 - 3 days; Reason: Recheck today's complaints, Continuance of care, Re-evaluation by your physician. - Problem is new. - Symptoms have improved. Signatures: Dispatcher [employer] EDIA Nikolay Aranda MD MD [facility] Rusty Pandya RN RN em Carmelita Maloney RN RN bb Sunil Toussaint, PA PA jr8 Mera Cifuentes RN RN tw2 Cornel Miller RN RN jd3 Corrections: (The following items were deleted from the chart) 11/20 21:03 20:44 11/20/2019 20:44 Discharged to Home. Impression: Migraine; Vomiting; Chest pain, bb unspecified. Condition is Stable. Forms are Medication Reconciliation Form, Thank You Letter, Antibiotic Education, Prescription Opioid Use. Follow up: Private Physician; When: 2 - 3 days; Reason: Recheck today's complaints, Continuance of care, Re-evaluation by your physician. Problem is new. Symptoms have improved. jr8
--- NOTE | 2019-11-20 20:45 | ER ---
Nurse's Notes [facility] Name: Corwin Nieto Age: 49 yrs Sex: Female : 1970 Arrival Date: 11/20/2019 Time: 18:18 Bed 2 Private MD: Diagnosis: Migraine;Vomiting;Chest pain, unspecified Presentation: 11/20 18:29 Presenting complaint: Patient states: i have a migraine that just hit me all of a tw2 sudden, it hit me at work, i threw up and work and at the bathroom here, i feel a burning on my chest through to my back its like a burst, i went to the dr yesterday in [facility] they diagnosed me with double ear infections, bronchitis and a UTI, the gave me a shot of steroid and abx shot and prescribed me amoxiclav twice a day. Transition of care: patient was not received from another setting of care. Onset of symptoms was November 20, 2019. Risk Assessment: Do you want to hurt yourself or someone else? Patient reports no desire to harm self or others. Initial Sepsis Screen: Does the patient meet any 2 criteria? No. Patient's initial sepsis screen is negative. Does the patient have a suspected source of infection? No. Patient's initial sepsis screen is negative. Care prior to arrival: None. 18:29 Method Of Arrival: Ambulatory tw2 18:29 Acuity: ALEXANDRA 3 tw2 18:33 Presenting complaint: Mother states: she also has an aneurysm in the ascending aortic tw2 root. Triage Assessment: 18:31 Headache History: The patient has had previous headaches and this one is similar to tw2 previous episodes, and this one is more severe than previous episodes. General: Appears uncomfortable, well groomed, Behavior is calm, cooperative, appropriate for age. Pain: Pain currently is 10 out of 10 on a pain scale. Pain began suddenly, 2 hours ago. Also complains of nausea. Neuro: Level of Consciousness is awake, alert, obeys commands, Oriented to person, place, time, situation. 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 - Coronavirus screen:: The patient has NOT traveled to [place] in the past 14 days. - Social history:: Smoking status: . - Ebola Screening: : Patient denies travel to an Ebola-affected area in the 21 days before illness onset. Screenin:42 Abuse screen: Denies threats or abuse. Nutritional screening: No deficits noted. em Tuberculosis screening: No symptoms or risk factors identified. Fall Risk None identified. Assessment: 08:42 General: Appears in no apparent distress. uncomfortable, Behavior is calm, cooperative, em Denies fever. Pain: Complains of pain in head and chest Pain currently is 10 out of 10 on a pain scale. Quality of pain is described as burning. Neuro: Level of Consciousness is awake, alert, obeys commands, Oriented to person, place, time, situation, Appropriate for age Reports headache. Cardiovascular: Capillary refill < 3 seconds Patient's skin is warm and dry. Pulses are all present. Respiratory: Reports cough that is productive, Airway is patent Respiratory effort is even, unlabored, Respiratory pattern is regular, symmetrical. GI: Abdomen is flat, Reports normal bowel habits, vomiting. Derm: Skin is intact, is healthy with good turgor, Skin is pink, warm \T\ dry. Musculoskeletal: Capillary refill < 3 seconds, Range of motion: intact in all extremities. 19:30 General: Appears in no apparent distress. uncomfortable, Behavior is calm, cooperative, jd3 appropriate for age. Pain: Complains of pain in head Pain currently is 8 out of 10 on a pain scale. Quality of pain is described as aching. Pain: Complains of pain in chest, left upper quadrant and left lower quadrant Pain radiates to back Quality of pain is described as burning, dull, radiating, tender, Is continuous. Neuro: Level of Consciousness is awake, alert, obeys commands, Oriented to person, place, time, situation, Reports headache. Cardiovascular: Reports chest pain, Heart tones S1 S2 present Capillary refill < 3 seconds Patient's skin is warm and dry. Respiratory: Reports cough that is productive, Airway is patent Respiratory effort is even, unlabored, Respiratory pattern is regular, symmetrical, Breath sounds are clear bilaterally. GI: Abdomen is round non-distended, Bowel sounds present X 4 quads. Abd is soft X 4 quads Abdomen is tender to palpation in left upper quadrant and left lower quadrant Reports nausea. : Reports urinary frequency. EENT: No signs and/or symptoms were reported regarding the EENT system. Derm: Skin is intact, Skin is dry, Skin is normal, Skin temperature is warm. Musculoskeletal: Circulation, motion, and sensation intact. Range of motion: intact in all extremities. 20:15 Reassessment: Patient appears in no apparent distress at this time. No changes from jd3 previously documented assessment. Patient and/or family updated on plan of care and expected duration. Pain level reassessed. Patient is alert, oriented x 3, equal unlabored respirations, skin warm/dry/pink. 21:00 Reassessment: Patient is alert, oriented x 3, equal unlabored respirations, skin bb warm/dry/pink. pt verbalized understanding of and agrees to plan of care discharge instructions given pt assisted to exit via wheelchair accompanied by parent Patient states feeling better. 21:00 Reassessment: Patient appears in no apparent distress at this time. Patient and/or jd3 family updated on plan of care and expected duration. Pain level reassessed. Patient is alert, oriented x 3, equal unlabored respirations, skin warm/dry/pink. pt reported understanding of discharge instructions, assisted to vehicle with wheelchair. Patient states feeling better. Vital Signs: 18:32 BP 126 / 97; Pulse 84; Resp 17; Temp 97.8(TE); Pulse Ox 100% on R/A; Weight 83.46 kg tw2 (R); Pain 10/10; 18:45 BP 156 / 95; Pulse 90 RA; em 18:48 BP 136 / 88; Pulse 87 LA; em 19:30 BP 132 / 90; Pulse 74; Resp 16 S; Pulse Ox 100% on R/A; Pain 8/10; jd3 20:45 Pain 3/10; jd3 20:59 BP 111 / 82; Pulse 75; Resp 17 S; Pulse Ox 99% on R/A; Pain 3/10; jd3 21:01 BP 111 / 75; Pulse 71; Resp 16 S; Temp 98.6(TE); Pulse Ox 99% on R/A; Pain 1/10; bb ED Course: 18:18 Patient arrived in ED. mr 18:31 Triage completed. tw2 18:31 Arm band placed on. tw2 18:31 EKG done, by ED staff, reviewed by Sunil HANNA. sg 18:38 Sunil Toussaint PA is PHCP. jr8 18:38 Nikolay Aranda MD is Attending Physician. jr8 18:42 Patient has correct armband on for positive identification. Placed in gown. Bed in low em position. Call light in reach. Side rails up X2. Adult w/ patient. air sampling and monitoring on. Pulse ox on. NIBP on. 18:45 Initial lab(s) drawn, by me, sent to lab. Inserted saline lock: 20 gauge in right em antecubital area, using aseptic technique. Blood collected. 19:06 Cornel Miller, RN is Primary Nurse. jd3 19:12 XRAY Chest (1 view) In Process Unspecified. EDMS 19:58 CT Aorta for Dissection In Process Unspecified. EDMS 20:58 No provider procedures requiring assistance completed. IV discontinued, intact, jd3 bleeding controlled, No redness/swelling at site. Pressure dressing applied. Administered Medications: 18:50 Drug: Reglan 10 mg Route: IVP; Site: right antecubital; em 19:50 Follow up: Response: No adverse reaction jd3 18:55 Drug: Benadryl 25 mg Route: IVP; Site: right antecubital; em 19:50 Follow up: Response: No adverse reaction jd3 21:02 Follow up: Response: No adverse reaction bb 20:04 Drug: fentaNYL (PF) 50 mcg Route: IVP; Site: right antecubital; jd3 20:45 Follow up: Pain 3/10 Adult; Response: No adverse reaction; Pain is decreased jd3 20:42 Drug: ProTONIX 40 mg Route: IVP; Site: right antecubital; jd3 21:02 Follow up: Response: No adverse reaction bb 20:42 Drug: Decadron - Dexamethasone 10 mg Route: IVP; Site: right antecubital; jd3 21:02 Follow up: Response: No adverse reaction bb Outcome: 20:44 Discharge ordered by . juanis 20:58 Discharged to home via wheelchair, with family. jd3 20:58 Condition: stable 20:58 Discharge instructions given to patient, family, Instructed on discharge instructions, follow up and referral plans. medication usage, Demonstrated understanding of instructions, follow-up care, medications, Prescriptions given X 1. 21:03 Patient left the ED. bb Signatures: Dispatcher [employer] EDCm Villanueva, RN RN ZaragozaCandice mr Pandya, Rusty, RN RN Carmelita Wilkinson RN RN bb Sunil Toussaint PA PA jr8 Mera Cifuentes RN RN tw2 Cornel Miller RN RN jd3 Corrections: (The following items were deleted from the chart) 20:59 20:58 Discharge instructions given to patient, family, Instructed on discharge jd3 instructions, follow up and referral plans. Demonstrated understanding of instructions, follow-up care, jd3
[2019-11-20 23:54] VITALS: BP 111/82; O2SAT 99
--- NOTE | 2019-11-21 11:32 | EKG ---
Test Date: 2019-11-20 Test Time: 18:45:10 Sales Technician: SWG MEASUREMENT RESULTS: Intervals: Rate: 104 MT: 126 QRSD: 84 QT: 350 QTc: 460 Jarratt: P: 58 MT: 126 QRS: 41 T: 48 INTERPRETIVE STATEMENTS: Sinus tachycardia Nonspecific T wave abnormality Abnormal ECG Compared to ECG 07/23/2014 21:24:14 T-wave abnormality now present Sinus rhythm no longer present Electronically Signed On 11-21-19 11:31:20 LEGAL CLERK by Chris Mac
== END 2019-11-20 21:03 | disposition home or self-care (01) ==
LOC: ER 18:16
DX: G43.909 Migraine, unspecified, not intractable, without status migrainosus (principal); R07.9 Chest pain, unspecified; F32.9 Major depressive disorder, single episode, unspecified; Z88.1 Allergy status to other antibiotic agents; Z88.5 Allergy status to narcotic agent
CPT/HCPCS: 93005; 85025; 80048; 36415; 83735; 85610; 80076; 84484; 83880; 71275; 74175; 71045; 96375; 96374; 99285; Q9967; J2765; J1200; C9113; J3010

== ENCOUNTER 2021-06-06 04:44 | Emergency (ER) | payer BC, OTHER ==
[2021-06-06] MEDS ORDERED: ACETAMINOPHEN 500 MG TAB ONE (05:46)
[2021-06-06 05:52] LABS: Absolute Lymphocytes (CBC) 1.6 K/uL (0.7-4.9); Basophils % 0.6 % (0-1.3); Hematocrit 41.8 % (36.0-45.0); Lymphocytes % 21.3 % (15.3-44.8); MPV 8.2 fL (7.6-11.3)
[2021-06-06 06:02] LABS: SARS-COV-2 RT PCR NEGATIVE (NEGATIVE)
[2021-06-06 06:08] LABS: Albumin 3.7 g/dL (3.4-5.0); Bilirubin Total 0.4 mg/dL (0.2-1.0); Potassium 4.1 mmol/L (3.5-5.1); Protein, Total 7.5 g/dL (6.4-8.2)
[2021-06-06] MEDS ORDERED: NA CHLORIDE 0.9% 1,000 ML ONE (06:14)
--- NOTE | 2021-06-06 07:38 | EDPHYS ---
Physician Documentation [facility] Name: Corwin Nieto Age: 51 yrs Sex: Female : 1970 Arrival Date: 06/06/2021 Time: 04:48 Bed 12 Private MD: ED Physician Dominic Pastor HPI: 06/06 05:47 This 51 yrs old Female presents to ER via Ambulatory with complaints of mh7 Cough, Congestion, Fever - +FLU B. 05:47 The patient or guardian reports cough, that is intermittent, described as moderate, mh7 with no sputum, flu symptoms, low-grade fever, myalgias, Runny nose, congestion, sore throat. 05:47 Onset: The symptoms/episode began/occurred 6 week(s) ago. Severity of symptoms: At mh7 their worst the symptoms were moderate, 3 day(s) ago, in the emergency department the symptoms are unchanged. Modifying factors: The symptoms are alleviated by nothing, the symptoms are aggravated by nothing. Associated signs and symptoms: Pertinent positives: fever, rhinorrhea, sore throat, Pertinent negatives: chest pain, diarrhea, ear ache, nausea, vomiting. The patient has been recently seen at an urgent care, last week. Patient reports that she recently tested positive for influenza B.. 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 - Social history:: Smoking status: Patient denies any tobacco usage or history of. ROS: 05:47 Eyes: Negative for injury, pain, redness, and discharge, Neck: Negative for injury, mh7 pain, and swelling, Cardiovascular: Negative for chest pain, palpitations, and edema, Abdomen/GI: Negative for abdominal pain, nausea, vomiting, diarrhea, and constipation, Back: Negative for injury and pain, : Negative for injury, bleeding, discharge, and swelling, MS/Extremity: Negative for injury and deformity, Skin: Negative for injury, rash, and discoloration, Neuro: Negative for headache, weakness, numbness, tingling, and seizure, Psych: Negative for depression, anxiety, suicide ideation, homicidal ideation, and hallucinations, Allergy/Immunology: Negative for hives, rash, and allergies, Endocrine: Negative for neck swelling, polydipsia, polyuria, polyphagia, and marked weight changes, Hematologic/Lymphatic: Negative for swollen nodes, abnormal bleeding, and unusual bruising. Exam: 05:47 Constitutional: This is a well developed, well nourished patient who is awake, alert, mh7 and in no acute distress. Head/Face: Normocephalic, atraumatic. Eyes: Pupils equal round and reactive to light, extra-ocular motions intact. Lids and lashes normal. Conjunctiva and sclera are non-icteric and not injected. Cornea within normal limits. Periorbital areas with no swelling, redness, or edema. ENT: Nares patent. No nasal discharge, no septal abnormalities noted. Tympanic membranes are normal and external auditory canals are clear. Oropharynx with no redness, swelling, or masses, exudates, or evidence of obstruction, uvula midline. Mucous membranes moist. Neck: Trachea midline, no thyromegaly or masses palpated, and no cervical lymphadenopathy. Supple, full range of motion without nuchal rigidity, or vertebral point tenderness. No Meningismus. Chest/axilla: Normal chest wall appearance and motion. Nontender with no deformity. No lesions are appreciated. 05:47 Respiratory: Lungs have equal breath sounds bilaterally, clear to auscultation and percussion. No rales, rhonchi or wheezes noted. No increased work of breathing, no retractions or nasal flaring. Abdomen/GI: Soft, non-tender, with normal bowel sounds. No distension or tympany. No guarding or rebound. No evidence of tenderness throughout. Back: No spinal tenderness. No costovertebral tenderness. Full range of motion. Skin: Warm, dry with normal turgor. Normal color with no rashes, no lesions, and no evidence of cellulitis. MS/ Extremity: Pulses equal, no cyanosis. Neurovascular intact. Full, normal range of motion. Neuro: Awake and alert, GCS 15, oriented to person, place, time, and situation. Cranial nerves II-XII grossly intact. Motor strength 5/5 in all extremities. Sensory grossly intact. Cerebellar exam normal. Normal gait. Psych: Awake, alert, with orientation to person, place and time. Behavior, mood, and affect are within normal limits. 05:47 Cardiovascular: Rate: tachycardic, Rhythm: regular, Pulses: no pulse deficits are appreciated, Heart sounds: normal, normal S1and S2, Edema: is not appreciated, JVD: is not appreciated. Vital Signs: 05:00 BP 116 / 87; Pulse 124; Resp 20; Temp 100(O); Pulse Ox 95% on R/A; Weight 80.29 kg (R); lp1 Height 5 ft. 2 in. (157.48 cm); Pain 10/10; 07:06 BP 117 / 71; Pulse 89; Resp 18; Temp 98.5(O); Pulse Ox 97% on R/A; lp1 07:55 BP 116 / 73; Pulse 86; Resp 16; Temp 98.6; ll1 05:00 Body Mass Index 32.38 (80.29 kg, 157.48 cm) lp1 MDM: 07:35 Differential Diagnosis: Bronchitis Influenza Upper Respiratory Infection Pharyngitis 7 Allergic Rhinitis Viral Syndrome Pneumonia. Data reviewed: vital signs, nurses notes, lab test result(s), CBC, electrolytes, Flu: negative Covid negative, radiologic studies, plain films. Data interpreted: Pulse oximetry: on room air is 97 %. Interpretation: normal. Counseling: I had a detailed discussion with the patient and/or guardian regarding: the historical points, exam findings, and any diagnostic results supporting the discharge/admit diagnosis, lab results, radiology results, the need for outpatient follow up, to return to the emergency department if symptoms worsen or persist or if there are any questions or concerns that arise at home. Response to treatment: the patient's symptoms have markedly improved after treatment, patient is well hydrated. 07:37 Patient medically screened. [facility] 06/06 05:30 Order name: CBC with Manual Differential lp1 06/06 05:30 Order name: Comprehensive Metabolic Panel lp1 06/06 05:30 Order name: CBC with Manual Differential EDMS 06/06 05:30 Order name: Comprehensive Metabolic Panel; Complete Time: 07:01 EDMS 06/06 06:02 Order name: COVID-19/FLU A+B; Complete Time: 07:01 EDMS 06/06 05:30 Order name: XRAY Chest Pa And Lat (2 Views) lp1 06/06 07:20 Order name: Rapid Strep [facility] Administered Medications: 05:23 Drug: Tylenol 1000 mg {Note: Verbal order by Dr. Pastor.} Route: PO; lp1 07:54 Follow up: Response: No adverse reaction; Temperature is decreased ll1 05:53 Drug: NS 0.9% 1000 ml Route: IV; Rate: 1000 ml; Site: right antecubital; lp1 07:54 Follow up: Response: No adverse reaction; IV Status: Completed infusion; IV Intake: ll1 950ml Disposition Summary: 06/06/21 07:37 Discharge Ordered Location: Home [facility] Problem: an ongoing problem [facility] Symptoms: have improved [facility] Condition: Stable [facility] Diagnosis - Viral Syndrome [facility] Followup: [facility] - With: Private Physician - When: 1 - 2 days - Reason: Worsening of condition, Recheck today's complaints, Continuance of care, Re-evaluation by your physician Discharge Instructions: - Discharge Summary Sheet [facility] - Viral Respiratory Infection, [id number] [facility] Forms: - Medication Reconciliation Form [facility] - Work release form ss - Thank You Letter [facility] - Antibiotic Education [facility] - Prescription Opioid Use [facility] Prescriptions: - albuterol sulfate 90 mcg/actuation Inhalation HFA aerosol inhaler - inhale 2 puff by INHALATION route every 6 hours As needed; 1 Inhaler; Refills: [facility] 0, Product Selection Permitted - Ibuprofen 800 mg Oral Tablet - take 1 tablet by ORAL route every 8 hours As needed take with food; 15 tablet; [facility] Refills: 0, Product Selection Permitted Signatures: Dispatcher [employer] EDLora Randhawa RN RN lp1 Dominic Pastor MD MD 7 Lee Roberts RN ll1 Corrections: (The following items were deleted from the chart) 05:48 05:47 CORONAVIRUS+ ordered. EDTX EDMS
--- NOTE | 2021-06-06 07:38 | ER ---
Nurse's Notes [facility] Name: Corwin Nieto Age: 51 yrs Sex: Female : 1970 Arrival Date: 06/06/2021 Time: 04:48 Bed 12 Private MD: Diagnosis: Viral Syndrome Presentation: 06/06 04:53 Chief complaint: Patient states: "I've been sick since Sunday"; Reports tested for lp1 COVID, Flu, Strep at Urgent Care on Sunday, Positive for Flu B; Tested for COVID at [facility] on Sunday , COVID Negative; Currently taking Tamiflu, steroids, nasal spray, Bromfed, Tessalon Perles; Reports severe cough and congestion. Coronavirus screen: Vaccine status: Patient reports receiving the 2nd dose of the covid vaccine. Date November 29, 2020 fever. Ebola Screen: No symptoms or risks identified at this time. Risk Assessment: Do you want to hurt yourself or someone else? Patient reports no desire to harm self or others. Onset of symptoms was June 06, 2021. 04:53 Method Of Arrival: Ambulatory lp1 04:58 Note Reports 102 temp at 0336 this AM, Took ibuprofen 600mg PO. lp1 05:00 Acuity: ALEXANDRA 3 lp1 05:00 Initial Sepsis Screen: Does the patient meet any 2 criteria? HR > 90 bpm. Does the lp1 patient have a suspected source of infection? Yes: Productive cough/pneumonia Other: Positive for Flu B. 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 - Social history:: Smoking status: Patient denies any tobacco usage or history of. Screenin:59 Abuse screen: Denies threats or abuse. Denies injuries from another. Nutritional lp1 screening: No deficits noted. Tuberculosis screening: No symptoms or risk factors identified. Fall Risk None identified. Assessment: 05:41 General: Appears ill, Behavior is appropriate for age. Pain: Complains of pain in lp1 generalized body Pain currently is 10 out of 10 on a pain scale. Quality of pain is described as aching. Neuro: Level of Consciousness is awake, alert, obeys commands, Oriented to person, place, time, situation. Cardiovascular: Patient's skin is warm and dry. Respiratory: Reports cough that is persistent Respiratory effort is even, Respiratory pattern is regular, Breath sounds are clear bilaterally. the patient has mild shortness of breath. GI: No signs and/or symptoms were reported involving the gastrointestinal system. : No signs and/or symptoms were reported regarding the genitourinary system. EENT: Reports nasal congestion. Derm: Skin is intact, Skin is dry, Skin is normal. Musculoskeletal: No deficits noted. 07:06 Reassessment: Patient appears in no apparent distress at this time. Patient resting, lp1 eyes closed, respirations even. 07:55 Reassessment: No changes from previously documented assessment. Patient and/or family ll1 updated on plan of care and expected duration. Pain level reassessed. Patient is alert, oriented x 3, equal unlabored respirations, skin warm/dry/pink. Vital Signs: 05:00 BP 116 / 87; Pulse 124; Resp 20; Temp 100(O); Pulse Ox 95% on R/A; Weight 80.29 kg (R); lp1 Height 5 ft. 2 in. (157.48 cm); Pain 10/10; 07:06 BP 117 / 71; Pulse 89; Resp 18; Temp 98.5(O); Pulse Ox 97% on R/A; lp1 07:55 BP 116 / 73; Pulse 86; Resp 16; Temp 98.6; ll1 05:00 Body Mass Index 32.38 (80.29 kg, 157.48 cm) lp1 ED Course: 04:48 Patient arrived in ED. bp1 04:58 Arm band placed on right wrist. lp1 05:01 Triage completed. lp1 05:03 Patient has correct armband on for positive identification. 1 05:21 Dominic Pastor MD is Attending Physician. [facility] 05:40 Lora Natarajan, RN is Primary Nurse. lp1 05:41 Inserted saline lock: 20 gauge in right antecubital area, using aseptic technique. lp1 Blood collected. 07:13 XRAY Chest Pa And Lat (2 Views) In Process Unspecified. EDMS 07:55 No provider procedures requiring assistance completed. IV discontinued, intact, ll1 bleeding controlled, No redness/swelling at site. Pressure dressing applied. Administered Medications: 05:23 Drug: Tylenol 1000 mg {Note: Verbal order by Dr. Pastor.} Route: PO; lp1 07:54 Follow up: Response: No adverse reaction; Temperature is decreased 1 05:53 Drug: NS 0.9% 1000 ml Route: IV; Rate: 1000 ml; Site: right antecubital; lp1 07:54 Follow up: Response: No adverse reaction; IV Status: Completed infusion; IV Intake: ll1 950ml Intake: 07:54 IV: 950ml; Total: 950ml. 1 Outcome: 07:37 Discharge ordered by . [facility] 07:56 Discharged to home ambulatory. 1 07:56 Condition: stable 07:56 Discharge instructions given to patient, Instructed on discharge instructions, follow up and referral plans. medication usage, Demonstrated understanding of instructions, follow-up care, medications, Prescriptions given X 2. 07:56 Patient left the ED. 1 Signatures: Dispatcher [employer] EDMT Lora Natarajan, RN RN lp1 Lee Roberts RN RN 1 Poonam Rosales Maurice, MD MD [facility] Corrections: (The following items were deleted from the chart) 05:03 05:00 80.29 kg Reported; Height 5 ft. 2 in.; BMI: 32.3; lp1 lp1
[2021-06-06 07:49] LABS: Blood Morphology Comment NOT SEEN (NOT SEEN); Platelet Estimate ADEQ
[2021-06-06 08:14] VITALS: O2SAT 97
[2021-06-06 08:19] VITALS: BP 116/73; TEMP 98.6
--- NOTE | 2021-06-06 09:52 | RAD REPORT ---
EXAM DESCRIPTION: Kaitlin Miranda (2 Views)06/06/2021 7:13 am CLINICAL HISTORY: Congestion COMPARISON: 2019 FINDINGS: The lungs appear clear of acute infiltrate. The heart is normal size IMPRESSION: No acute abnormalities displayed
== END 2021-06-06 07:56 | disposition home or self-care (01) ==
LOC: ER 04:44
DX: B34.9 Viral infection, unspecified (principal); E03.9 Hypothyroidism, unspecified; F32.9 Major depressive disorder, single episode, unspecified; Z20.822 Contact with and (suspected) exposure to COVID-19; Z88.1 Allergy status to other antibiotic agents; Z88.5 Allergy status to narcotic agent
CPT/HCPCS: 96361; 85025; 36415; 80053; 0240U; 71046; 96360; 99284; J7030

== ENCOUNTER 2021-12-16 09:48 | Emergency (ER) | payer BC ==
[2021-12-16 10:34] LABS: Urine Blood Negative (Negative); Urine Glucose Negative (Negative); Urine Protein Negative (Negative)
[2021-12-16] MEDS ORDERED: METOCLOPRAMIDE 10 MG/2mL INJ ONE (11:24)
[2021-12-16] MEDS ORDERED: KETOROLAC 30 MG/ML INJ ONE (11:25)
[2021-12-16] MEDS ORDERED: NA CHLORIDE 0.9% 1,000 ML ONE (11:25)
[2021-12-16 11:49] LABS: Absolute Lymphocytes (CBC) 2.2 K/uL (0.7-4.9); Hematocrit 38.2 % (36.0-45.0); Lymphocytes % 38.2 % (15.3-44.8); MPV 8.1 fL (7.6-11.3); RBC Red Blood Cell Count 4.29 M/uL (3.86-4.86)
[2021-12-16 11:53] LABS: Urine Bacteria NONE SEEN /HPF (<20); Urine RBC NONE SEEN /HPF (NONE SEEN)
[2021-12-16 12:16] LABS: Albumin 3.4 g/dL (3.4-5.0); Bilirubin Total 0.3 mg/dL (0.2-1.0); Potassium 4.2 mmol/L (3.5-5.1); Protein, Total 6.7 g/dL (6.4-8.2)
--- NOTE | 2021-12-16 13:08 | RAD REPORT ---
EXAM DESCRIPTION: CT - Head Brain Wo Cont - 12/16/2021 12:53 pm CLINICAL HISTORY: PAIN Headache, drowsiness COMPARISON: Head Brain Wo Cont dated 07/05/2017; HEAD BRAIN W O CONTRAST dated 07/23/2014 TECHNIQUE: All CT scans are performed using dose optimization technique as appropriate and may inclu de automated exposure control or mA/KV adjustment according to patient size. FINDINGS: No intracranial hemorrhage, hydrocephalus or extra-axial fluid collection.No areas of brai n edema or evidence of midline shift. The paranasal sinuses and mastoids are clear. The calvarium is intact. IMPRESSION: No acute intracranial abnormality.
--- NOTE | 2021-12-16 13:10 | RAD REPORT ---
EXAM DESCRIPTION: CTAbdomen Pelvis W Contrast - 12/16/2021 12:53 pm CLINICAL HISTORY: Abdominal pain. ABD PAIN COMPARISON: CT ABD PELVIS W CONTRAST dated 02/06/2009; CT ABD PELVIS W CONTRAST dated 11/07/2008 TECHNIQUE: Biphasic CT imaging of the abdomen and pelvis was performed with 100 ml non-ionic IV cont rast. All CT scans are performed using dose optimization technique as appropriate and may include automated exposure control or mA/KV adjustment according to patient size. FINDINGS: The lung bases are clear.Cholecystectomy clips. The liver, spleen, pancreas, adrenal glands and kidneys are within normal limits. No bowel obstruction, free air, free fluid or abscess. The appendix is normal. No evidence of signi ficant lymphadenopathy. No suspicious bony findings. IMPRESSION: No acute intra-abdominal or pelvic finding.
--- NOTE | 2021-12-16 14:04 | EDPHYS ---
Physician Documentation [facility] Name: Corwin Nieto Age: 51 yrs Sex: Female : 1970 Arrival Date: 12/16/2021 Time: 09:55 Bed 2 Private MD: ED Physician Ronald Rouse HPI: 12/16 11:19 This 51 yrs old Female presents to ER via Ambulatory with complaints of Leg Swelling, ma2 Leg Pain, Headache, Nausea. 11:19 52-year-old female, complains of migraine headache gradual moderate for 1 week, she ma2 stated that she had similar headaches in the past. Patient also complains of left calf pain that has been intermittent for the last month, she said that she had similar pain in the past as well. Pain has resolved 2 days ago however she started to have right calf pain this morning that lasted for an hour and then resolved. Of note patient does not have any swelling in either leg, as stated pain is resolved no pain in either leg at this time. Of note patient states she had bilateral femoral hernia repair. She stated that she has pain in the left upper thigh where she had the left hernia. This pain has been intermittent for the last 2 months. Patient would like to see to be done however she stated that she does not want any medication in the ER at this time as she has taken ibuprofen prior to presenting to the ER and her pain has improved significantly.. 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 - Social history:: Smoking status: Patient denies any tobacco usage or history of. - Family history:: not pertinent. ROS: 11:19 Constitutional: Negative for fever, chills, and weight loss. ma2 11:19 All other systems are negative. Exam: 11:19 Constitutional: This is a well developed, well nourished patient who is awake, alert, ma2 and in no acute distress. Head/Face: Normocephalic, atraumatic. Eyes: Pupils equal round and reactive to light, extra-ocular motions intact. Lids and lashes normal. Conjunctiva and sclera are non-icteric and not injected. Cornea within normal limits. Periorbital areas with no swelling, redness, or edema. ENT: Nares patent. No nasal discharge, no septal abnormalities noted. Tympanic membranes are normal and external auditory canals are clear. Oropharynx with no redness, swelling, or masses, exudates, or evidence of obstruction, uvula midline. Mucous membranes moist. Neck: Trachea midline, no thyromegaly or masses palpated, and no cervical lymphadenopathy. Supple, full range of motion without nuchal rigidity, or vertebral point tenderness. No Meningismus. Chest/axilla: Normal chest wall appearance and motion. Nontender with no deformity. No lesions are appreciated. Cardiovascular: Regular rate and rhythm with a normal S1 and S2. No gallops, murmurs, or rubs. Normal PMI, no JVD. No pulse deficits. Respiratory: Lungs have equal breath sounds bilaterally, clear to auscultation and percussion. No rales, rhonchi or wheezes noted. No increased work of breathing, no retractions or nasal flaring. Abdomen/GI: Soft, non-tender, with normal bowel sounds. No distension or tympany. No guarding or rebound. No evidence of tenderness throughout. Back: No spinal tenderness. No costovertebral tenderness. Full range of motion. Skin: Warm, dry with normal turgor. Normal color with no rashes, no lesions, and no evidence of cellulitis. MS/ Extremity: Pulses equal, no cyanosis. Neurovascular intact. Full, normal range of motion. Neuro: Awake and alert, GCS 15, oriented to person, place, time, and situation. Cranial nerves II-XII grossly intact. Motor strength 5/5 in all extremities. Sensory grossly intact. Cerebellar exam normal. Normal gait. Vital Signs: 10:00 BP 127 / 88; Pulse 75; Resp 16; Temp 98.1; Pulse Ox 100% ; Weight 80.29 kg; Height 5 ll1 ft. 2 in. (157.48 cm); Pain 10/10; 11:39 BP 119 / 78; Pulse 71; Resp 18; Pulse Ox 100% on R/A; ld1 13:23 BP 113 / 94; Pulse 66; Resp 18; Pulse Ox 100% on R/A; Pain 4/10; ld1 10:00 Body Mass Index 32.37 (80.29 kg, 157.48 cm) ll1 MDM: 10:42 Patient medically screened. ma2 11:19 Differential diagnosis: contusion, abrasion, tendonitis, Headache is mildly due to ma2 tension headache versus migraine, unlikely subdural bleeding or intraparenchymal bleed. Data reviewed: vital signs, nurses notes. 14:03 Counseling: I had a detailed discussion with the patient and/or guardian regarding: the ma2 historical points, exam findings, and any diagnostic results supporting the discharge/admit diagnosis, the presence of at least one elevated blood pressure reading (>120/80) during this emergency department visit, the need for outpatient follow up. Response to treatment: the patient's symptoms have markedly improved after treatment. 12/16 10:33 Order name: Urine Dipstick-Ancillary; Complete Time: 10:42 EDMS 12/16 11:15 Order name: CBC with Diff; Complete Time: 12:46 ma2 12/16 11:15 Order name: CMP; Complete Time: 12:46 ma2 12/16 11:15 Order name: Lipase; Complete Time: 12:46 ma2 12/16 11:15 Order name: Urine Microscopic Only; Complete Time: 12:46 ma2 12/16 11:15 Order name: CT Abd/Pelvis - IV Contrast Only; Complete Time: 13:55 ma2 12/16 11:15 Order name: IV Saline Lock; Complete Time: 11:36 ma2 12/16 11:15 Order name: Labs collected and sent; Complete Time: 11:36 ma2 12/16 11:15 Order name: Urine Dipstick-Ancillary (obtain specimen); Complete Time: 11:37 ma2 12/16 11:15 Order name: CT Head Brain wo Cont; Complete Time: 13:55 ma2 Administered Medications: 11:36 Drug: Reglan (metoCLOPramide) 10 mg Route: IVP; Site: left antecubital; ld1 12:58 Follow up: Response: No adverse reaction vg1 11:36 Drug: Ketorolac 30 mg Route: IVP; Site: left antecubital; ld1 12:59 Follow up: Response: No adverse reaction; Marked relief of symptoms vg1 11:37 Drug: NS 0.9% 1000 ml Route: IV; Rate: 1 bolus; Site: left antecubital; ld1 12:58 Follow up: IV Status: Completed infusion; IV Intake: 1000ml vg1 Disposition Summary: 12/16/21 14:04 Discharge Ordered Location: Home ma2 Condition: Stable ma2 Diagnosis - Pain in leg, unspecified - both legs ma2 - Headache ma2 Followup: ma2 - With: Private Physician - When: Tomorrow - Reason: If symptoms return, Continuance of care Discharge Instructions: - Discharge Summary Sheet ma2 - General Headache Without Cause ma2 Forms: - Medication Reconciliation Form ma2 - Thank You Letter ma2 - Antibiotic Education ma2 - Prescription Opioid Use ma2 - Work release form ld1 Prescriptions: - Reglan 10 mg Oral Tablet - take 1 tablet by ORAL route every 6 hours . take 30 minutes before meals and at ma2 bedtime; 100 tablet; Refills: 0, Product Selection Permitted Signatures: Dispatcher [employer] EDMS Ronald Rouse MD MD ma2 Lee oRberts RN RN 1 Karen Rodriguez RN RN ld1 Gita Johnson RN vg1
--- NOTE | 2021-12-16 14:04 | ER ---
Nurse's Notes [facility] Name: Corwin Nieto Age: 51 yrs Sex: Female : 1970 Arrival Date: 12/16/2021 Time: 09:55 Bed 2 Private MD: Diagnosis: Pain in leg, unspecified-both legs;Headache Presentation: 12/16 10:00 Chief complaint: Patient states: Bilateral leg swelling (worse on L) for 3 days. Feels ll1 fatigued and weak. No fever or cough. + ROPER with nausea. Coronavirus screen: Vaccine status: Patient reports receiving the 2nd dose of the covid vaccine. Client denies travel out of the [place] in the last 14 days. fatigue, headache, nausea, Client presents with at least one sign or symptom that may indicate coronavirus-19. Standard/surgical mask placed on the client. Ebola Screen: Patient denies travel to an Ebola-affected area in the 21 days before illness onset. Initial Sepsis Screen: Does the patient meet any 2 criteria? No. Patient's initial sepsis screen is negative. Does the patient have a suspected source of infection? No. Patient's initial sepsis screen is negative. Risk Assessment: Do you want to hurt yourself or someone else? Patient reports no desire to harm self or others. Onset of symptoms was December 14, 2021. 10:00 Method Of Arrival: Ambulatory ll1 10:00 Acuity: ALEXANDRA 3 ll1 Triage Assessment: 10:03 Headache History: The patient has had previous headaches and this one is different than ll1 previous episodes. General: Appears uncomfortable, Behavior is cooperative, appropriate for age. Pain: Complains of pain in legs Pain currently is 10 out of 10 on a pain scale. Pain began 2-3 days ago. Neuro: Reports headache weakness. Musculoskeletal: Reports bilateral leg swelling. 14:23 Pain: Also complains of no other associated symptoms. ld1 [employer]: 14:23 LMP 12/16/2021 ld1 Historical: - Allergies: 10:02 Codeine; ll1 10:02 Flagyl; ll1 10:02 Levaquin; ll1 - PMHx: 10:02 Fibromyalgia; Migraines; Hypothyroidism; Depression; Triple A; ll1 - PSHx: 10:02 partial hysterectomy; femoral hernia repair, hernia repairs; Cholecystectomy; ll1 - Immunization history:: Client reports receiving the 2nd dose of the Covid vaccine. - Social history:: Smoking status: Patient denies any tobacco usage or history of. - Family history:: not pertinent. Screenin:39 Abuse screen: Denies threats or abuse. Denies injuries from another. Nutritional ld1 screening: No deficits noted. Tuberculosis screening: No symptoms or risk factors identified. Fall Risk None identified. Assessment: 11:39 General: Appears in no apparent distress. comfortable, Behavior is calm, cooperative, ld1 appropriate for age. Pain: Complains of pain in right leg and left leg Pain does not radiate. Pain currently is 6 out of 10 on a pain scale. Quality of pain is described as pressure, throbbing, Pain began 2-3 days ago. Is continuous. Neuro: Level of Consciousness is awake, alert, obeys commands, Oriented to person, place, time, situation. Cardiovascular: Capillary refill < 3 seconds Patient's skin is warm and dry. Respiratory: Airway is patent Respiratory effort is even, unlabored, Respiratory pattern is regular, symmetrical. GI: Abdomen is round non-distended. : No signs and/or symptoms were reported regarding the genitourinary system. EENT: No signs and/or symptoms were reported regarding the EENT system. Derm: No signs and/or symptoms reported regarding the dermatologic system. Musculoskeletal: No signs and/or symptoms reported regarding the musculoskeletal system. 12:59 Reassessment: Patient appears in no apparent distress at this time. Patient and/or vg1 family updated on plan of care and expected duration. Pain level reassessed. Patient is alert, oriented x 3, equal unlabored respirations, skin warm/dry/pink. Pt rated pain level 4/10. Vital Signs: 10:00 BP 127 / 88; Pulse 75; Resp 16; Temp 98.1; Pulse Ox 100% ; Weight 80.29 kg; Height 5 ll1 ft. 2 in. (157.48 cm); Pain 10/10; 11:39 BP 119 / 78; Pulse 71; Resp 18; Pulse Ox 100% on R/A; ld1 13:23 BP 113 / 94; Pulse 66; Resp 18; Pulse Ox 100% on R/A; Pain 4/10; ld1 10:00 Body Mass Index 32.37 (80.29 kg, 157.48 cm) ll1 ED Course: 09:55 Patient arrived in ED. kz 10:02 Triage completed. ll1 10:03 Arm band placed on. ll1 10:34 Patient placed in an exam room, on a stretcher. aa5 10:35 Ronald Rouse MD is Attending Physician. ma2 11:21 Karen Rodriguez, BRIGIDA is Primary Nurse. ld1 11:39 Patient has correct armband on for positive identification. Placed in gown. Bed in low ld1 position. Call light in reach. Side rails up X2. cellophane tester on. Pulse ox on. NIBP on. Door closed. Noise minimized. Warm blanket given. 11:39 No provider procedures requiring assistance completed. Inserted saline lock: 20 gauge ld1 in left antecubital area, using aseptic technique. Blood collected. 12:53 CT Abd/Pelvis - IV Contrast Only In Process Unspecified. EDMS 12:53 CT Head Brain wo Cont In Process Unspecified. EDMS 14:23 IV discontinued, intact, bleeding controlled, No redness/swelling at site. ld1 Administered Medications: 11:36 Drug: Reglan (metoCLOPramide) 10 mg Route: IVP; Site: left antecubital; ld1 12:58 Follow up: Response: No adverse reaction vg1 11:36 Drug: Ketorolac 30 mg Route: IVP; Site: left antecubital; ld1 12:59 Follow up: Response: No adverse reaction; Marked relief of symptoms vg1 11:37 Drug: NS 0.9% 1000 ml Route: IV; Rate: 1 bolus; Site: left antecubital; ld1 12:58 Follow up: IV Status: Completed infusion; IV Intake: 1000ml vg1 Intake: 12:58 IV: 1000ml; Total: 1000ml. vg1 Outcome: 14:04 Discharge ordered by . ma2 14:23 Discharged to home ambulatory. ld1 14:23 Condition: stable 14:23 Discharge instructions given to patient, Instructed on discharge instructions, follow up and referral plans. medication usage, Demonstrated understanding of instructions, follow-up care, medications, Prescriptions given X 1. 14:25 Patient left the ED. ld1 Signatures: Dispatcher [employer] EDMS Jeannie Mari, BRIGIDA RN aa5 Alzahri, Mohammad, Gita Dhaliwal MD, RN RN vg1 Lee Roberts, RN RN ll1 Karen Rodriguez, RN RN ld1 Geena Reed
[2021-12-16 14:38] VITALS: O2SAT 100
[2021-12-16 14:39] VITALS: BP 113/94
[2021-12-16 14:46] VITALS: TEMP 98.1
== END 2021-12-16 14:25 | disposition home or self-care (01) ==
LOC: ER 09:48
DX: R51.9 Headache, unspecified (principal); M79.605 Pain in left leg; M79.604 Pain in right leg; Z88.1 Allergy status to other antibiotic agents; Z88.5 Allergy status to narcotic agent
CPT/HCPCS: 96361; 85025; 36415; 83690; 80053; 70450; 74177; 96375; 96374; 99284; Q9967; J2765; J7030; 81003; 81015